=== PATIENT | female | born 1995 | race Caucasian/White ===

== ENCOUNTER 2025-02-14 09:04 | Outpatient (OUT) | payer OTHER, SELFPAY ==
--- OUTSIDE RECORDS SUMMARY | 2025-02-04 10:00 | XMS_ITS | Encounter Summary ---
Author Organization [facility] Address [address] [place] [address] Care Team Providers Care Insurance Risk Manager Name Role Phone Doug Rajput MD Primary Care Provider [phone] Encounter Details Date Type Department Care Team (Latest Contact Info) Description 02/04/2025 10:00 AM EDT Ancillary Procedure [facility] [address] [place] [address] Missed menses; Positive urine test ([facility]) Social History Tobacco Use Types Packs/Day Years Used Date Smoking Tobacco: Never Assessed Estimated Date of Delivery Comme nts Yes 08/08/2025 Based on Ultraso und, FHR- 153 Sex and Gender Information Value Date Recorded Sex Assigned at Not on file Legal Sex Female 6:53 PM EDT Gender Identity Not on file Sexual Orientation Not on file documented as of this encounter Plan of Treatment Upcoming Encounters Date Type Department Care Team (Late st Contact Info) Description 03/02/2025 11:10 AM EDT Routine [facility] [address] [place] [address] Chong Eid DO [address] [place] [place], [place] [id number] documented as of this encounter Procedures Procedure Name Priority Date/Time Associated Diagnosis Comments US OB TRANSVAGINAL Routine 02/04/2025 10 :29 AM EDT Missed menses Positive urine test ([facility]) documented in this encounter Results * US OB transvaginal (02/04/2025 10:29 AM EDT) Anatomical Region Laterality Modality Body Ultrasound 02/07/2025 12:3 6 PM EDT Impressions 02/07/2025 12:43 PM EDT Findings consistent with a live intrauterine gestation, current sonographic age of 13 weeks and 4 days resulting in an estimated date of delivery of August 08, 2025. TRANSCRIBED BY: ELECTRONICALLY SIGNED BY: Zach Christianson MD Narrative 02/07/2025 12:43 PM EDT FINDINGS: A single intrauterine gestational sac is present. No subchorionic hemorrhage. A single pole is present. Normal heart rate at 153 beats per minute. Current sonographic age is 13 weeks and 4 days based on the crown-rump length measurement of 7.5 cm. Based on this age, current estimated date of delivery is August 08, 2025. No pelvic fluid or adnexal mass present. Cervix is closed, 5.4 cm. Procedure Note Zach Christianson MD - 02/07/2025 FINDINGS: A single intrauterine gestational sac is present. No subchorionichemorrhage. A single pole is present. Normal heart rate at153 beats per minute. Current sonographic age is 13 weeks and 4 daysbased on the crown-rump length measurement of 7.5 cm. Based on this age,current estimated date of delivery is August 08, 2025. No pelvic fluid oradnexal mass present. Cervix is closed, 5.4 cm. IMPRESSION: Findings consistent with a live intrauterine gestation, currentsonographic age of 13 weeks and 4 days resulting in an estimated date ofdelivery of August 08, 2025. TRANSCRIBED BY: ELECTRONICALLY SIGNED BY: Zach Christianson MD us Chong Stanton DO IMG OB US PROCEDURES Final Resul t documented in this encounter Visit Diagnoses Diagnosis Missed menses Positive urine test ([facility]) documented in this encounter Care Teams Insurance Risk Manager Relationship Specialty Start Date End Date Doug Rajput MD [address] [place] [address] PCP - General Family Medicine 02/04/25 documented as of this encounter
--- OUTSIDE RECORDS SUMMARY | 2025-02-04 10:30 | XMS_ITS | Encounter Summary ---
Author Organization [facility] Address [address] [place] [address] Care Team Providers Care Hand Paint Mixer Name Role Phone Doug Rajput MD Primary Care Provider [phone] Reason for Visit * Reason Comments Routine Visit Encounter Details Date Type Department Care Team (Late st Contact Info) Description 02/04/2025 10:30 AM EDT Initial [facility] [address] [facility] [place] [id number] GA: 13w4d Social History Tobacco Use Types Packs/Day Years Used Date Smoking Tobacco: Never Assessed Estimated Date of Delivery Comme nts Yes 08/08/2025 Based on Ultraso und, FHR- 153 Sex and Gender Information Value Date Recorded Sex Assigned at Not on file Legal Sex Female 6:53 PM EDT Gender Identity Not on file Sexual Orientation Not on file documented as of this encounter Last Filed Vital Signs Vital Sign Reading Time Taken Comments Blood Pressure 120/70 02/04/2025 10:47 AM EDT Pulse - - Temperature - - Respiratory Rate - - Oxygen Saturation - - Inhaled Oxygen Concentration - - Weight 45.3 kg (99 lb 12.8 oz) 02/04/2025 10:47 AM EDT Height - - Body Mass Index - - documented in this encounter Progress Notes * Evie Streeter LPN - 02/04/2025 10:30 AM EDT Reason for Appointment: Patient ID: Alcon Kirby is a 29 y.o. female who presents for Routine Visit Patient presents today for a Nurse OB Intake appointment. Patient is 13w4d with a Estimated Date ofDelivery: 08/08/25 OB History Para Term AB Living 3 2 2 2 SAB IAB Ectopic Multiple Live Births 2 # Outcome Date GA Lbr Avtar/2nd Weight Sex Type Anes PTL Lv 3 Current 2 Term 10/20/16 7 lb 4 oz M Vag-Spont RAMBO 1 Term 09/30/15 6 lb 5 oz F Vag-Spont RAMBO Comments: 2 weeks early Current Medications: has a current medication list which includes the following prescription(s): ondansetron odt, magnesium oxide, and promethazine. Medical History: Active Ambulatory Problems Diagnosis Date Noted No Active Ambulatory Problems Resolved Ambulatory Problems Diagnosis Date Noted No Resolved Ambulatory Problems Past Medical History: Diagnosis Date H/O herpes simplex infection Family History Problem Relation Name Age of Onset Hypertension Mother Social History Tobacco Use Smoking status: Not on file Smokeless tobacco: Not on file Substance Use Topics Alcohol use: Not on file Drug use: Not on file Past Surgical History: Procedure Laterality Date ANKLE SURGERY Left No Known Allergies Vitals: There is no height or weight on file to calculate BMI. BP: 120/70 Patient's last menstrual period was 12/11/2024. Assessment/Plan Diagnoses and all orders for this visit: Missed menses - Type and screen; Future - ABO/Rh; Future - CBC and differential - Hemoglobin A1c - RPR - Rubella antibody, IgG - Hepatitis B surface antigen - Hepatitis C antibody - HIV-1 and HIV-2 antibodies - Urine culture - POCT , urine manually resulted - POCT urinalysis dipstick manually resulted , unspecified gestational age ([facility]) - Type and screen; Future - ABO/Rh; Future - CBC and differential - Hemoglobin A1c - RPR - Rubella antibody, IgG - Hepatitis B surface antigen - Hepatitis C antibody - HIV-1 and HIV-2 antibodies - Rapid drug screen, urine; Future Encounter for supervision of normal first in first trimester ([facility]) - Rapid drug screen, urine; Future Nausea - promethazine (Phenergan) 12.5 MG tablet; Take 1 tablet (12.5 mg) by mouth every 6 (six) hours if needed for nausea or vomiting for up to 30 doses Take 1 tablet by mouth every 6 hours as needed for nausea. Other migraine without status migrainosus, not intractable - magnesium oxide (Mag-Ox) 400 MG tablet; Take 1 tablet (400 mg) by mouth Daily Nurse Note: OB Intake: Patient presents today for first OB visit. Patients history has been reviewed in great detail including any potential risks. Patient signed consent forms and patient desires testing in both trimesters. Patient currently has no complaints and has been advised to drink 6-8 glasses of water a day, eatno raw or undercooked meat, and stay away from [facility]. Patient has also been advised to not change litter boxes and eat 6 small meals a day. Patient has been consulted regarding the do's and don'ts ofpregnancy. Patient was given labs and all questions and concerns were answered. Patient was given [place] to have completed with Initial lab work. Scripts for nausea and migraines sent at this time. Follow Up: Patient is to return in 4 weeks for routine OB appointment. Follow Up: Patient is to have labs drawn at directed and return to office for initial OB appointment with provider. Patient may call office as needed with any concerns or questions. Nurse Visit Completed by: Evie Streeter LPN documented in this encounter Plan of Treatment Upcoming Encounters Date Type Department Care Team (Late st Contact Info) Description 03/02/2025 11:10 AM EDT Routine [facility] [address] [facility] [place] [phone] Chong Eid DO [address] [place] [address] Scheduled Orders Name Type Priority Associated Diagnoses Orde r Schedule Type and screen Lab Routine Missed menses , unspecified gestational age ([facility]) Expected: 02/04/2025 (Approximate), Expires: 02/04/2026 ABO/Rh Lab Routine Missed menses , unspecified gestational age ([facility]) Expected: 02/04/2025 (Approximate), Expires: 02/04/2026 CBC and differential Lab Routine Missed menses , unspecified gestational age ([facility]) Ordered: 02/04/2025 Hemoglobin A1c Lab Routine Missed menses , unspecified gestational age ([facility]) Ordered: 02/04/2025 RPR Lab Routine Missed menses , unspecified gestational age ([facility]) Ordered: 02/04/2025 Rubella antibody, IgG Lab Routine Missed menses , unspecified gestational age ([facility]) Ordered: 02/04/2025 Hepatitis B surface antigen Lab Routine Missed menses , unspecified gestational age ([facility]) Ordered: 02/04/2025 Hepatitis C antibody Lab Routine Missed menses , unspecified gestational age ([facility]) Ordered: 02/04/2025 HIV-1 and HIV-2 antibodies Lab Routine Missed menses , unspecified gestational age ([facility]) Ordered: 02/04/2025 Urine culture Microbiology Routine Missed menses Ordered: 02/04/2025 Rapid drug screen, urine Lab Routine , unspecified gestational age ([facility]) Encounter for supervision of normal first in first trimester ([facility]) Expected: 02/04/2025 (Approximate), Expires: 02/04/2026 documented as of this encounter Procedures Procedure Name Priority Date/Time Associated Diagnosis Comments POCT , URINE Routine 02/04/2025 10:33 AM EDT Missed menses POCT URINALYSIS DIPSTICK Routine 02/04/2025 10:33 AM EDT Missed menses documented in this encounter Results * POCT urinalysis dipstick manually resulted (02/04/2025 10:33 AM EDT) Color, UA Colorless Clarity, UA Clear Glucose, UA Negative Negative - 2000(110) ++++ mg/dL Bilirubin, UA Negative Negative - 4(70) +++ mg/dL Ketones, UA Negative Negative - 160(16) ++++ mg/dL Spec Grav, UA 1.005 1 - 1.03 Blood, UA Negative Negative - 50 Travis/mcL pH, UA 6.0 5 - 9 Protein, UA Negative Negative - 2000(20) ++++ mg/dL Urobilinogen, UA 1.0 0.2 - 12 mg/dL Leukocytes, UA Negative Negative - 500+++ Lala/mcL Nitrite, UA Negative Negative - Positive Urine 02/04/2025 10:3 3 AM EDT us Chong Eid DO POINT OF CARE TEST ENTER/EDIT OR DERABLES Final Result * (ABNORMAL) POCT , urine manually resulted (02/04/2025 10:33 AM EDT) Preg Test, Ur Positive Negative Urine 02/04/2025 10:3 3 AM EDT Chong Eid DO POINT OF CARE TEST ENTER/EDIT OR DERABLES Final Result documented in this encounter Visit Diagnoses Diagnosis Missed menses , unspecified gestational age ([facility]) Encounter for supervision of normal first in first trimester ([facility]) Nausea Nausea alone Other migraine without status migrainosus, not intractable documented in this encounter Care Teams Hand Paint Mixer Relationship Specialty Start Date End Date Doug Rajput MD [address] [place] [address] PCP - General Family Medicine 02/04/25 documented as of this encounter
--- OUTSIDE RECORDS SUMMARY | 2025-02-14 09:10 | XMS_ITS | Encounter Summary ---
Author Organization [facility] Address [address] [place] [address] Care Team Providers Care Jointer Submarine Cable Name Role Phone Doug Rajput MD Primary Care Provider [phone] Encounter Details Date Type Department Care Team (Late Contact Info) Description 02/04/2025 Abstract [facility] [address] [place] [phone] Chong Eid DO [address] [place], [facility] Social History Tobacco Use Types Packs/Day Years [...] Encounters Date Type Department Care Team (Late Contact Info) Description 03/02/2025 11:10 AM EDT Routine [facility] [address] [place] [place] [phone] Chong Eid DO [address] [place], [place] [phone] documented as of this encounter Visit Diagnoses Not on filedocumented in this encounter Care Teams Jointer Submarine Cable Relationship Specialty Start Date End Date Doug Rajput MD [address] [facility] [place] [address] PCP - General Family Medicine 02/04/25 documented as of this encounter
--- OUTSIDE RECORDS SUMMARY | 2025-02-14 09:10 | XMS_ITS | Encounter Summary ---
Author Organization [facility] Address [address] [place] [address] Care Team Providers Care Living Supervisor Name Role Phone Doug Rajput MD Primary Care Provider [phone] Encounter Details Date Type Department Care Team (Late Contact Info) Description 02/04/2025 Abstract [facility] [address] [place] [phone] Chong Eid DO [address] [place], [facility] Social History Tobacco Use Types Packs/Day Years [...] 11:10 AM EDT Routine [facility] [address] [employer] [place] [phone] Chong Eid DO [address] [place], [place] [phone] documented as of this encounter Visit Diagnoses Not on filedocumented in this encounter Care Teams Living Supervisor Relationship Specialty Start Date End Date Doug Rajput MD [address] [facility] [place] [address] PCP - General Family Medicine 02/04/25 documented as of this encounter
--- OUTSIDE RECORDS SUMMARY | 2025-02-14 09:10 | XMS_ITS | Encounter Summary ---
Author Organization [facility] Address [address] [place] [address] Care Team Providers Care Agricultural Extension Agent Name Role Phone Doug Rajput MD Primary Care Provider [phone] Encounter Details Date Type Department Care Team (Late Contact Info) Description 02/04/2025 Abstract [facility] [address] [place] [phone] Chong Eid DO [address] [place], [facility]11 Social History Tobacco Use Types Packs/Day [...] 11:10 AM EDT Routine [facility] [address] [employer] [place] [phone] Chong Eid DO [address] [place], [place] [id number] documented as of this encounter Visit Diagnoses Not on filedocumented in this encounter Care Teams Agricultural Extension Agent Relationship Specialty Start Date End Date Doug Rajput MD [address] [place] [facility] [place] [address] PCP - General Family Medicine 02/04/25 documented as of this encounter
[2025-02-14 10:08] LABS: Hematocrit 37.6 % (36.0-48.0); Hemoglobin 13.3 g/dL (12.0-16.0); Immature Granulocytes Abs Auto 0.03 10^3/uL (0.00-0.03); Immature Granulocytes Pct Auto 0.3 % (0.0-0.5); Lymphocytes Absolute Auto 1.7 10^3/uL (1.2-3.8); Mean Corpuscular HGB Conc 35.4 g/dL (29.9-35.2); Mean Corpuscular Hemoglobin 31.5 pg (26.7-34.0); Mean Corpuscular Volume 89.1 fL (81.0-99.0); Platelet Count 297 10^3/uL (150-450); Red Blood Count 4.22 10^6/uL (4.20-5.40); White Blood Count 8.7 10^3/uL (4.0-11.0)
[2025-02-14 10:27] LABS: Cannabinoid Screen Urine POSITIVE (NEGATIVE); Methamphetamines Screen Urine NEGATIVE (NEGATIVE); Tricyclic Antidepressant Urine NEGATIVE (NEGATIVE)
[2025-02-15 07:07] LABS: Rubella Antibodies, IgG 5.74 index (Immune >0.99)
[2025-02-15 13:08] LABS: Rapid Plasma Reagin, Quant Non Reactive titer (NonRea<1:1)
[2025-02-17 17:09] LABS: Carboxy THC Conf, MS, UR 42 ng/mL (Cutoff=10)
== END 2025-02-14 09:05 | disposition home or self-care (01) ==
LOC: LAB 09:08
PROVIDERS: PCP Family Medicine; Visit Provider Obstetrics & Gynecology
DX: Z34.01 Encounter for supervision of normal first pregnancy, first trimester (principal); N92.6 Irregular menstruation, unspecified
CPT/HCPCS: 36415; 80307; 80349; 83036; 85025; 86592; 86762; 86803; 86850; 86900; 86901; 87086; 87340; 87389

== ENCOUNTER 2025-03-23 08:51 | Outpatient (OUT) | payer OTHER, SELFPAY ==
--- OUTSIDE RECORDS SUMMARY | 2025-03-23 08:55 | XMS_ITS | Clinical Summary ---
Author Organization [facility] Address [address] [place] [address] Care Team Providers Care Bad Cloth Checker Name Role Phone Doug Rajput MD Primary Care Provider [phone] Allergies No known active allergies Medications MedicationSigDispense QuantityRefillsLast FilledStart DateEnd DateStatus ondansetron ODT (Zofran-ODT) 4 MG disintegrating tablet Take 4 mg by mouth every 6 (six) hours if needed for vomiting or nausea 5Active promethazine (Phenergan) 12.5 MG tablet Indications:NauseaTake 1 tablet (12.5 mg) by mouth every 6 (six) hours if needed for nausea or vomiting for up to 30 doses Take 1 tablet by mouth every 6 hours as needed for nausea. 30 tablet 5Active magnesium oxide (Mag-Ox) 400 MG tablet Indications:Other migraine without status migrainosus, not intractableTake 1 tablet (400 mg) by mouth Daily 30 tablet 6051Expired Encounters DateTypeDepartmentCare VemkQvszcfakvcn21/15/2025 11:10 AM EDTRout[place] [address] Chong Eid DO Second trimester ([facility]); 17 weeks gestation of ([facility]); Screening, , for anatomic survey ([facility])5Bamboo [place] [phone] Chong Eid DO 5Clinisync Result Encounter [facility] External Department Unsolicited Robyn Beauchamp PA 02/04/2025 10:30 AM EDTInitial [facility] [address] [facility] [place] [address] [place]: 59o3x4502/04/2025 10:00 AM EDTAncillary Procedure [facility] [address] [facility] [place] [address] Missed menses; Positive urine test ([facility])02/04/2025bstract [facility] [place] [facility] [address] [place] [address] Chong Eid, 02/04/2025bstract [facility] [address] [address] Chong Eid, 02/04/2025bstract [facility] [address] [place] [address] Chong Eid, from Last 3 Months Family History Medical HistoryRelationNameCommentsHypertensionMotherRelationNameStatusComments Mother Social History Tobacco UseTypesPacks/DayYears UsedDateSmoking Tobacco: Never Assessed Estimated Date of RsuvsuzlBkhlqasbXkx84/23/2026ased on Ultrasound, FHR- 153Sex and Gender InformationValueDate RecordedSex Assigned at BirthNot on fileLegal OtlXtirsb69/15/2023 6:53 PM EDTGender IdentityNot on fileSexual OrientationNot on file Last Filed Vital Signs Vital SignReadingTime TakenCommentsBlood Lhjotdwu360/6203/02/2025 11:38 AM EDT Pulse--Temperature--Respiratory Rate--Oxygen Saturation--Inhaled Oxygen Concentration--Wuuplk77.5 kg (107 lb)03/02/2025 11:38 AM EDTHeight--Body Mass Index-- Plan of Treatment DateTypeDepartmentCare Team (Latest Contact Info)Czowsfrtolv98/12/2025 1:30 PM ESTAncillary Procedure [facility] [place] [address] 03/30/2025 2:30 PM ESTRoutine [facility] [address] [place] [address] Robyn Beauchamp PA [address] [facility] [place] [address] Procedures Procedure NamePriorityDate/TimeAssociated DiagnosisCommentsPOCT URINALYSIS QSLRIHNWHtncuai12/15/2025 11:44 AM EDT 17 weeks gestation of ([facility]) HBSAG RFZUOMSzhgfmj38/29/2025 9:30 AM EDT RAPID PLASMA REAGIN, BPCCSYsbgarj86/29/2025 9:30 AM EDT HCV ANTIBODY RFX TO QUANT OPSMfctssx96/29/2025 9:30 AM EDT ALL RUBELLA IGG WRScasaji33/29/2025 9:30 AM EDT HIV AB/P24 AG WITH CKVVDLXipiuvb93/29/2025 9:30 AM EDT ALL TYPE AND ONCKZYKxkuefi74/29/2025 9:30 AM EDT MLR HEMOGLOBIN D4FWimlxsi34/29/2025 9:30 AM EDT ALL CBC WITH AUTO XMYLNfiiyja21/29/2025 9:30 AM EDT BOX AAOCQderxes66/29/2025 9:30 AM EDT CANNABINOID CONF, MS, ROSddhpgb37/29/2025 9:17 AM EDT TBH DRUG SCREEN RAPID (URINE)Qpmheoh8102/14/2025 9:17 AM EDT POCT URINALYSIS UTRVJPGPZptrfju05/19/2025 10:33 AM EDT Missed menses POCT , HKAKSZdpxwev05/19/2025 10:33 AM EDT Missed menses US OB RCJPHUAJFEBEVraodhf55/19/2025 10:29 AM EDT Missed menses Positive urine test ([facility]) from Last 3 Months Results * (ABNORMAL) POCT urinalysis dipstick manually resulted (03/02/2025 11:44 AM EDT) Only the most recent of2 resultswithin the time period is included. ComponentValueRef RangeTest MethodAnalysis TimePerformed AtPathologist Signature Color, UAYellowClarity, UAClearGlucose, UANegativeNegative - 2000(110) ++++ mg/dLBilirubin, UANegativeNegative - 4(70) +++ mg/dLKetones, UANegativeNegative - 160(16) ++++ mg/dLSpec Grav, UA1.0151 - 1.03Blood, UANegativeNegative - 50 Travis/mcLpH, UA6.55 - 9Protein, UANegativeNegative - 2000(20) ++++ mg/dL Urobilinogen, UA1.00.2 - 12 mg/dLLeukocytes, UA2+Negative - 500+++ Lala/mcL Nitrite, UANegativeNegative - PositiveSpecimen (Source)Anatomical Location / LateralityCollection Method / VolumeCollection TimeReceived FmpyMhivl48/15/2025 11:44 AM EDT Narrative Authorizing ProviderResult TypeResult StatusCorey Stanton DOPOINT OF CARE TEST ENTER/EDIT ORDERABLESFinal Result * BOX TEST (02/14/2025 9:30 AM EDT)ComponentValueRef RangeTest MethodAnalysis TimePerformed AtPathologist SignatureBOX TEST SENT ZEINYAFLHKIV8LVBNCOVERZS1 02/14/25TBHSpecimen (Source)Anatomical Location / LateralityCollection Method / VolumeCollection TimeReceived Time02/14/2025 9:30 AM EDT02/14/2025 9:37 AM EDT Narrative [facility] - 02/14/2025 10:13 AM EDT Authorizing ProviderResult TypeResult StatusAmy Nito PALAB BLOOD ORDERABLES Final ResultPerforming OrganizationAddressCity/State/ZIP CodePhone Number [facility] * HBSAG SCREEN (02/14/2025 9:30 AM EDT)ComponentValueRef RangeTest Method Analysis TimePerformed AtPathologist SignatureHBSAG SCREENNegativeNegativeTBH Comment: Performed at: ?? - [address] ??[id number] Final Application Reviewer: Linus Pollard PhD, Phone: ??[phone] Specimen (Source)Anatomical Location / LateralityCollection Method / Volume Collection TimeReceived Time02/14/2025 9:30 AM EDT02/14/2025 9:37 AM EDT Narrative [facility] - 02/15/2025 1:08 PM EDT Authorizing ProviderResult TypeResult StatusCoreshravan PATHAKAB BLOOD ORDERABLES Final ResultPerforming OrganizationAddressCity/State/ZIP CodePhone Number [facility] * RAPID PLASMA REAGIN, QUANT (02/14/2025 9:30 AM EDT)ComponentValueRef RangeTest MethodAnalysis TimePerformed AtPathologist SignatureRAPID PLASMA REAGIN, QUANT Non ReactiveNonRea<1:1 titerTBHComment: Please Note: This test does not meet current guidelines for screening and diagnosis of syphilis. This test is intended for following treatment response in patients being treated for syphilis infection. To screen for syphilis infection, a reflex cascade that includes both RPR and a treponema-specific assay should be utilized, such as Treponema pallidum (Syphilis) Screening Titus (363233) or Rapid Plasma Reagin (RPR) Test With Reflex to Quantitative RPR and Confirmatory Treponema pallidum Antibodies (034789). Performed at: ??[facility] [employer] ??[id number] Final Application Reviewer: Linus Pollard PhD, Phone: ??[phone] Specimen (Source)Anatomical Location / LateralityCollection Method / Volume Collection TimeReceived Time02/14/2025 9:30 AM EDT02/14/2025 9:37 AM EDT [facility]ative [facility] 02/15/2025 1:08 PM EDT Authorizing ProviderResult TypeResult StatusCorey Stanton DOLAB BLOOD ORDERABLES Final ResultPerforming OrganizationAddBrooke Glen Behavioral Hospitalty/State/ZIP CodePhone Number [facility] * HIV AB/P24 AG WITH REFLEX (02/14/2025 9:30 AM EDT)ComponentValueRef RangeTest MethodAnalysis TimePerformed AtPathologist SignatureHIV AB/P24 AG SCREENNon ReactiveNon ReactiveTBHComment: HIV-1/HIV-2 antibodies and HIV-1 p24 antigen were NOT detected. There is no laboratory evidence of HIV infection. HIV Negative Performed at: ??[facility] [employer] ??[id number] Final Application Reviewer: Linus Pollard PhD, Phone: ??[phone] Specimen (Source)Anatomical Location / LateralityCollection Method / Volume Collection TimeReceived Time02/14/2025 9:30 AM EDT02/14/2025 9:37 AM EDT Narrative [facility] - 02/15/2025 5:08 AM EDT Authorizing ProviderResult TypeResult StatusCorey Stanton DOLAB BLOOD ORDERABLES Final ResultPerforming OrganizationAddressCity/State/ZIP CodePhone Number [facility] * HCV ANTIBODY RFX TO QUANT PCR (02/14/2025 9:30 AM EDT)ComponentValueRef Range Test MethodAnalysis TimePerformed AtPathologist SignatureHCV ABNon ReactiveNon ReactiveTBHINTERPRETATION:Comment.TBHComment: Not infected with HCV unless early or acute infection is suspected (which may be delayed in an immunocompromised individual), or other evidence exists to indicate HCV infection. Performed at: ??[facility] [employer] ??[id number] Final Application Reviewer: Linus Pollard PhD, Phone: ??[phone] Specimen (Source)Anatomical Location / LateralityCollection Method / Volume Collection TimeReceived Time02/14/2025 9:30 AM EDT02/14/2025 9:37 AM EDT Narrative [facility] - 02/15/2025 7:07 AM EDT Authorizing ProviderResult TypeResult StatusCorey Stanton DOLAB BLOOD ORDERABLES Final ResultPerforming OrganizationAddBrooke Glen Behavioral Hospitalty/State/ZIP CodePhone Number [facility] * MLR HEMOGLOBIN A1C (02/14/2025 9:30 AM EDT)ComponentValueRef RangeTest Method Analysis TimePerformed AtPathologist SignatureGLYCOHEMOGLOBIN A1C5.14.5 - 6.2 %TBHComment: ADA RECOMMENDED LIMIT 4.0 - 6.0 ADA THERAPEUTIC TARGET < 7.0 ACTION SUGGESTED > 7.0 ESTIMATED AVERAGE JOXNWGH161ny/dLTBHSpecimen (Source)Anatomical Location / LateralityCollection Method / VolumeCollection TimeReceived Time02/14/2025 9:30 AM EDT02/14/2025 9:37 AM EDT Narrative [facility] - 02/14/2025 10:36 AM EDT Authorizing ProviderResult TypeResult StatusCorey Stanton DOCLINISYNCFinal Result Performing OrganizationAddBrooke Glen Behavioral Hospitalty/State/ZIP CodePhone Number [facility] * ALL TYPE AND SCREEN (02/14/2025 9:30 AM EDT)ComponentValueRef RangeTest Method Analysis TimePerformed AtPathologist SignatureBLOOD TYPEO PositiveTBHANTIBODY SCREENNEGATIVETBHSpecimen (Source)Anatomical Location / LateralityCollection Method / VolumeCollection TimeReceived Time02/14/2025 9:30 AM EDT02/14/2025 9:37 AM EDT Narrative [facility] - 02/14/2025 11:51 AM EDT [facility] , ?? Authorizing ProviderResult TypeResult StatusCorey Stanton DOCLINISYNCFinal Result Performing OrganizationAddBrooke Glen Behavioral Hospitalty/State/ZIP CodePhone Number [facility] * ALL RUBELLA IGG AB (02/14/2025 9:30 AM EDT)ComponentValueRef RangeTest Method Analysis TimePerformed AtPathologist SignatureRUBELLA ANTIBODIES, IGG5.74 Immune >0.99 indexTBHComment: Non-immune <0.90 ?Equivocal ??0.90 - 0.99 Immune >0.99 Performed at: ??[facility] [address] ??[id number] Final Application Reviewer: Linus Pollard PhD, Phone: ??[phone] Specimen (Source)Anatomical Location / LateralityCollection Method / Volume Collection TimeReceived Time02/14/2025 9:30 AM EDT02/14/2025 9:37 AM EDT Narrative [facility] - 02/15/2025 7:07 AM EDT Authorizing ProviderResult TypeResult StatusCorey Stanton DOCLINISYNCFinal Result Performing OrganizationAddressCity/State/ZIP CodePhone Number [facility] * (ABNORMAL) ALL CBC WITH AUTO DIFF (02/14/2025 9:30 AM EDT)ComponentValueRef RangeTest MethodAnalysis TimePerformed AtPathologist SignatureTBH WBC8.74.0 - 11.0 10 3/uLTBHTBH RBC4.224.20 - 5.40 10 6/uLTBHTBH HGB13.312.0 - 16.0 g/dLTBH TBH HCT37.636.0 - 48.0 %TBHTBH MCV89.181.0 - 99.0 fLTBHTBH MCH31.526.7 - 34.0 pgTBHTBH MCHC35.4(H)29.9 - 35.2 g/dLTBHTBH RDW12.111.0 - 15.0 %TBHTBH TJE777 150 - 450 10 3/uLTBHTBH MPV9.2(L)9.5 - 13.5 fLTBHNEUTROPHILS PERCENT AUTO73.5 43.0 - 75.0 %TBHLYMPHOCYTES PERCENT AUTO19.1(L)20.5 - 60.0 %TBHMONOCYTES PERCENT AUTO6.61.7 - 12.0 %TBHTBH EO %0.2(L)0.9 - 7.0 %TBHBASOPHILS PERCENT AUTO0.30.2 - 2.0 %TBHIMMATURE GRANULOCYTES PCT AUTO0.30.0 - 0.5 %TBH NEUTROPHILS ABSOLUTE AUTO6.41.4 - 6.5 10 3/uLTBHLYMPHOCYTES ABSOLUTE AUTO1.7 1.2 - 3.8 10 3/uLTBHMONOCYTES ABSOLUTE AUTO0.60.3 - 0.8 10 3/uLTBHTBH EO #0.0 0.0 - 0.7 10 3/uLTBHBASOPHILS ABSOLUTE AUTO0.00.0 - 0.1 10 3/uLTBHIMMATURE GRANULOCYTES ABS AUTO0.030.00 - 0.03 10 3/uLTBHSpecimen (Source)Anatomical Location / LateralityCollection Method / VolumeCollection TimeReceived Time 02/14/2025 9:30 AM EDT02/14/2025 9:37 AM EDT Narrative [facility] - 02/14/2025 10:17 AM EDT Authorizing ProviderResult TypeResult StatusCorey Stanton DOCLINISYNCFinal Result Performing OrganizationAddressCity/State/ZIP CodePhone Number [facility] * (ABNORMAL) [facility] DRUG SCREEN RAPID (URINE) (02/14/2025 9:17 AM EDT)Component ValueRef RangeTest MethodAnalysis TimePerformed AtPathologist Signature CANNABINOID SCREEN URINEPOSITIVE(A)NEGATIVETBHPHENCYCLIDINE SCREEN URINE NEGATIVENEGATIVETBHCOCAINE SCREEN URINENEGATIVENEGATIVETBHMETHAMPHETAMINES SCREEN URINENEGATIVENEGATIVETBHOPIATE SCREEN URINENEGATIVENEGATIVETBH AMPHETAMINE SCREEN URINENEGATIVENEGATIVETBHBENZODIAZEPINES SCREEN URINE NEGATIVENEGATIVETBHTRICYCLIC ANTIDEPRESSANT URINENEGATIVENEGATIVETBHMETHADONE SCREEN URINENEGATIVENEGATIVETBHBARBITURATES SCREEN URINENEGATIVENEGATIVETBH OXYCODONE SCREEN URINENEGATIVENEGATIVETBHBUPRENORPHINE SCREEN URINENEGATIVE NEGATIVETBHComment: DRUG CLASS TEST SYSTEM CUT-OFF CONCENTRATIONS ARE FOLLOWS: AMP (Amphetamine): 500 ng/mL BAR (Barbiturates): 200 ng/mL BZO (Benzodiazepines): 150 ng/mL BUP (Buprenorphine): 10 ng/mL BHARATHI (Cocaine): 150 ng/mL mAMP (Methamphetamine): 500 ng/mL MTD (Methadone): 200 ng/mL OPI (Opiates): 100 ng/mL OXY (Oxycodone): 100 ng/mL PCP (Phencyclidine): 25 ng/mL THC (Cannabinoids): 50 ng/mL TCA (Trycyclic Antidepressants): 300 ng/mL Specimen (Source)Anatomical Location / LateralityCollection Method / Volume Collection TimeReceived Time02/14/2025 9:17 AM EDT02/14/2025 9:38 AM EDT Narrative [facility] - 02/14/2025 10:27 AM EDT Authorizing ProviderResult TypeResult StatusCorey Stanton DOCLINISYNCFinal Result Performing OrganizationAddressCity/State/ZIP CodePhone Number [facility] * (ABNORMAL) CANNABINOID CONF, MS, UR (02/14/2025 9:17 AM EDT)ComponentValueRef RangeTest MethodAnalysis TimePerformed AtPathologist SignatureCANNABINOID Positive(A).TBHCARBOXY THC CONF, MS, XU71Gebryh=74 ng/mLTBHComment: Performed at: ??[facility] - [facility] [address] ??[id number] Final Application Reviewer: Leodan Martínez PhD, Phone: ??[phone] Specimen (Source)Anatomical Location / LateralityCollection Method / Volume Collection TimeReceived Time02/14/2025 9:17 AM EDT02/14/2025 10:29 AM EDT Narrative [facility] - 02/17/2025 5:09 PM EDT Authorizing ProviderResult TypeResult StatusCorey Stanton DOLAB BLOOD ORDERABLES Final ResultPerforming OrganizationAddressCity/State/ZIP CodePhone Number [facility] * (ABNORMAL) POCT , urine manually resulted (02/04/2025 10:33 AM EDT) ComponentValueRef RangeTest MethodAnalysis TimePerformed AtPathologist SignaturePreg Test, UrPositiveNegativeSpecimen (Source)Anatomical Location / LateralityCollection Method / VolumeCollection TimeReceived TimeUrine 02/04/2025 10:33 AM EDT Narrative Authorizing ProviderResult TypeResult StatusCorey Stanton DOPOINT OF CARE TEST ENTER/EDIT ORDERABLESFinal Result * US OB transvaginal (02/04/2025 10:29 AM EDT)Anatomical RegionLaterality ModalityBodyUltrasoundSpecimen (Source)Anatomical Location / Laterality Collection Method / VolumeCollection TimeReceived Time02/07/2025 12:36 PM EDT Impressions 02/07/2025 12:43 PM EDT Findings consistent with a live intrauterine gestation, current sonographic age of 13 weeks and 4 days resulting in an estimated date of delivery of August 08, 2025. TRANSCRIBED BY: ? ELECTRONICALLY SIGNED BY: Zach Christianson MD Narrative 02/07/2025 12:43 PM EDT FINDINGS: A single intrauterine gestational sac is present. ??No subchorionic hemorrhage. ??A single pole is present. Normal heart rate at 153 beats per minute. ??Current sonographic age is 13 weeks and 4 days based on the crown-rump length measurement of 7.5 cm. ??Based on this age, current estimated date of delivery is August 08, 2025. ??No pelvic fluid or adnexal mass present. ??Cervix is closed, 5.4 cm. Procedure Note Zach [...] BY: ELECTRONICALLY SIGNED BY: Zach Christianson MD Authorizing ProviderResult TypeResult StatusCorey Stanton DOI OB US PROCEDURES Final Result from Last 3 Months Insurance Care Teams Team MemberRelationshipSpecialtyStart DateEnd Date Doug Rajput MD [address] [place] [id number] [facility] - [facility]/25
--- OUTSIDE RECORDS SUMMARY | 2025-03-23 08:55 | XMS_ITS | Patient Health Record ---
Author Organization The [facility] Ma in [place] Address [address] [place] [address] Care Team Providers Care Unionmelt Operator Name Role Phone Dawson Rajput Primary Care Provider [phone] Allergies No Known Allergies Results Component Value Reference Range Notes Rapid Plasma Reagin, Quant Reviewed date:02/15/2025 04:57:55 PM Interpretation: Performing Lab: Notes/Report: [facility] , Rapid Plasma Reagin, Quant Non Reactive NonRea<1:1 tit er Treponema pallidum (Syphilis) Screening [place] (196813) or infection, a reflex cascade that includes both RPR and a screening and diagnosis of syphilis. This test is treated for syphilis infection. To screen for syphilis (398840). Label Operator: Linus Pollard PhD, Phone: [phone] [address] [place], [place] [id number] Performed at: [facility] intended for following treatment response in patients being RPR and Confirmatory Treponema pallidum Antibodies Rapid Plasma Reagin (RPR) Test With Reflex to Quantitative treponema-specific assay should be utilized, such as Please Note: This test does not meet current guidelines for Performing Lab: see note [facility] LBHBsAg Screen Reviewed date:02/15/2025 04:57:55 PM Interpretation: Performing Lab: Notes/Report: [facility] ,HBsAg ScreenNegativeNegative Performed at: [address] [id number] Label Operator: Linus Pollard PhD, Phone: [phone] Performing Lab:[facility] note[facility] LBUrine Culture, Routine Reviewed date:02/16/2025 05:54:47 PM Interpretation: Performing Lab: Notes/Report: [facility] ,Urine Culture, RoutineSee Below For Report Urine Culture, Routine Urine Culture, RoutineCulture shows less than 10,000 colony forming units of bacteria per Urine Culture, Routine Urine Culture, Routinemilliliter of urine. This colony count is not generally considered Urine Culture, Routine Urine Culture, Routineto be clinically significant. Urine Culture, Routine Urine Culture, RoutinePerformed at: [facility] Urine Culture, Routine Urine Culture, [address] [place], [place] [id number] Urine Culture, Routine Urine Culture, RoutineLab Director: Linus Pollard PhD, Phone: [phone] Urine Culture, Routine Performing Lab:see note SEE REPORT - Metal Fabricator Apprentice Id information not found for OBX-specific technical producer legend - [facility] LB Cannabinoid Conf, MS, UR Reviewed date:02/17/2025 05:33:23 PM Interpretation: Performing Lab: Notes/Report: [facility] ,CannabinoidPositive.Carboxy THC Conf, MS, CY11Sqcllz=49 ng/mL Performed at: [facility] [address] [place], [place] [id number] Label Operator: Leodan Martínez PhD, Phone: [phone] Performing Lab:see galloHar[facility] LBType and Screen Reviewed date:02/14/2025 02:21:07 PM Interpretation: Performing Lab: Notes/Report: [facility] ,Blood TypeO PositiveAntibody ScreenNEGATIVEGLYCOHEMOGLOBIN A1C Reviewed date:02/14/2025 02:21:07 PM Interpretation: Performing Lab: Notes/Report: [facility] ,Glycohemoglobin A1C5.14.5-6.2 % ADA THERAPEUTIC TARGET < 7.0 ADA RECOMMENDED LIMIT 4.0 - 6.0 > 7.0 ACTION SUGGESTED Estimated Average Pmekxnn467Zawyadjdfw Lab:see noteML - [facility] LB DRUG SCREEN RAPID (URINE) Reviewed date:02/14/2025 02:21:07 PM Interpretation: Performing Lab: Notes/Report: [facility] ,Cannabinoid Screen UrinePOSITIVENEGATIVEPhencyclidine Screen UrineNEGATIVE NEGATIVECocaine Screen UrineNEGATIVENEGATIVEMethamphetamines Screen Urine NEGATIVENEGATIVEOpiate Screen UrineNEGATIVENEGATIVEAmphetamine Screen Urine NEGATIVENEGATIVEBenzodiazepines Screen UrineNEGATIVENEGATIVETricyclic Antidepressant UrineNEGATIVENEGATIVEMethadone Screen UrineNEGATIVENEGATIVE Barbiturates Screen UrineNEGATIVENEGATIVEOxycodone Screen UrineNEGATIVENEGATIVE Buprenorphine Screen UrineNEGATIVENEGATIVE OXY (Oxycodone): 100 ng/mL THC (Cannabinoids): 50 ng/mL BAR (Barbiturates): 200 ng/mL DRUG CLASS TEST SYSTEM CUT-OFF CONCENTRATIONS ARE AMP (Amphetamine): 500 ng/mL BZO (Benzodiazepines): 150 ng/mL mAMP (Methamphetamine): 500 ng/mL BHARATHI (Cocaine): 150 ng/mL OPI (Opiates): 100 ng/mL PCP (Phencyclidine): 25 ng/mL TCA (Trycyclic Antidepressants): 300 ng/mL BUP (Buprenorphine): 10 ng/mL MTD (Methadone): 200 ng/mL FOLLOWS: Performing Lab:see noteML - [facility] LBCBC AUTO DIFF Reviewed date:02/14/2025 02:21:07 PM Interpretation: Performing Lab: Notes/Report: [facility] ,White Blood Count8.74.0-11.0 10 3/uLRed Blood Count4.224.20-5.40 10 6/uL Vfrdteljqm62.312.0-16.0 g/hHBjqzbgrvvn28.636.0-48.0 %Mean Corpuscular Iuavbn84.1 81.0-99.0 fLMean Corpuscular Rloqgxkeyb86.526.7-34.0 pgMean Corpuscular HGB Conc 35.429.9-35.2 g/dLRed Cell Distribution Width12.111.0-15.0 %Platelet Xxhez762 150-450 10 3/uLMean Platelet Volume9.29.5-13.5 fLNeutrophils Percent Auto73.5 43.0-75.0 %Lymphocytes Percent Auto19.120.5-60.0 %Monocytes Percent Auto6.61.7- 12.0 %Eosinophils Percent Auto0.20.9-7.0 %Basophils Percent Auto0.30.2-2.0 % Immature Granulocytes Pct Auto0.30.0-0.5 %Neutrophils Absolute Auto6.41.4-6.5 10 3/uLLymphocytes Absolute Auto1.71.2-3.8 10 3/uLMonocytes Absolute Auto0.60.3-0.8 10 3/uLEosinophils Absolute Auto0.00.0-0.7 10 3/uLBasophils Absolute Auto0.00.0- 0.1 10 3/uLImmature Granulocytes Abs Auto0.030.00-0.03 10 3/uLPerforming Lab:see noteML - [facility] LBUnity Box Reviewed date:02/14/2025 02:21:07 PM Interpretation: Performing Lab: Notes/Report: [facility] ,BOX Test Sent OutYESBOX Test Reference LabUNITYBOX Test Date Sent02/14/25 Performing Lab:see note - [facility] LBHCV Antibody RFX to Quant PCR Reviewed date:02/15/2025 08:08:58 AM Interpretation: Performing Lab: Notes/Report: [facility] ,HCV AbNon ReactiveNon ReactiveInterpretation:Comment. suspected (which may be delayed in an immunocompromised infection. Performed at: [facility] individual), or other evidence exists to indicate HCV Not infected with HCV unless early or acute infection is Label Operator: Linus Pollard PhD, Phone: [phone] [address] [place] [phone] Performing Lab:[facility] LBHIV Ab/p24 Ag with Reflex Reviewed date:02/15/2025 08:08:58 AM Interpretation: Performing Lab: Notes/Report: [facility] ,HIV Ab/p24 Ag ScreenNon ReactiveNon Reactive [address] [place] [phone] detected. There is no laboratory evidence of HIV infection. HIV-1/HIV-2 antibodies and HIV-1 p24 antigen were NOT Performed at: [facility] HIV Negative Label Operator: Linus Pollard PhD, Phone: [phone] Performing Lab:[facility] LBRUBELLA AB IGG Reviewed date:02/15/2025 08:08:58 AM Interpretation: Performing Lab: Notes/Report: [facility] ,Rubella Antibodies, IgG5.74Immune >0.99 index Equivocal 0.90 - 0.99 Non-immune <0.90 [address] [place], [place] [phone] Performed at: - [facility] [place] Immune >0.99 Label Operator: Linus Pollard PhD, Phone: [phone] Performing Lab:see note - [facility] LB Reason For Referral No Information Medications Medication SIG (Take, Route, Frequency, Duration) Notes Start Date End Date Status Ondansetron 4 MG 1 tablet on the tong ue and allow to dissolve Orally Q 4 h; Duration: 30 days 5Active Social History Tobacco Use: Social History Observation Description Date Details (start date - stop date) Former Smoker 12/17/2012 - 12/15/2024 Tobacco Control (Standard) Question Answer Notes Tobacco use: Former smoker When did you start smoking?12/17/2012When did you stop smoking?12/15/2024How long has it been since you last smoked?Less than 1 monthAUDIT-C (Standard) Question Answer Notes Did you have a drink containing alcohol in the p ast year? No Ierpfv0GgusedhdufqypsKhuydmzf Vital Signs Blood pressure diastolic 58 mm Hg 12/27/2024 Kmnbrw38 in12/27/2024lood pressure twzmsptu81 mm Hg12/27/20244631Gcdpat84.4 lbs 12/27/2024BMI18.24 kg/m212/27/2024 Encounters Encounter Location Date Provider Diagnosis [address] [address] 12/27/2024 Dawson Rajput Morning sickness O21 .0 Assessments Encounter Date Diagnosis (ICD Code) Assessment Notes Treatment Notes Treatment Clinical Notes Section Notes 12/27/2024 Morning sickness (ICD-10 - O21.0 ) Plan Of Treatment No Information Medical (General) History Medical History History ICD Code Staph infection Left ankle Hospitalization History Reason Date(Month/Year) staph infection as a child
== END 2025-03-23 08:52 | disposition home or self-care (01) ==
LOC: LAB 08:52
PROVIDERS: PCP Family Medicine; Visit Provider Obstetrics & Gynecology
DX: Z34.92 Encounter for supervision of normal pregnancy, unspecified, second trimester (principal)
CPT/HCPCS: 36415; 82105

== ENCOUNTER 2025-05-02 12:47 | Outpatient (REF) | payer OTHER, SELFPAY ==
[2025-05-04 10:08] LABS: Age Gdln ACOG Testing Note (.); IGP, Aptima HPV, rfx 16/18,45 Note (.)
== END 2025-05-02 12:48 | disposition home or self-care (01) ==
LOC: LAB 12:47
PROVIDERS: PCP Family Medicine; Visit Provider Obstetrics & Gynecology
DX: Z01.419 Encounter for gynecological examination (general) (routine) without abnormal findings (principal)
CPT/HCPCS: 88175

== ENCOUNTER 2025-05-04 10:44 | Outpatient (OUT) | payer OTHER, SELFPAY ==
--- OUTSIDE RECORDS SUMMARY | 2025-05-02 10:10 | XMS_ITS | Encounter Summary ---
Author Organization [facility] Address [address] [place] [address] Care Team Providers Care Popcorn Candy Maker Name Role Phone Doug Rajput MD Primary Care Provider [phone] Reason for Visit * ReasonCommentsRoutine Visit Encounter Details DateTypeDepartmentCare Team (Latest Contact Info)Xxppbehhyol86/15/2025 10:10 AM ESTRoutine [facility] [address] [place] [address] Chong Eid DO [address] [place] [address] Second trimester ([facility]); 26 weeks gestation of ([facility]); Diabetes mellitus screening; Well woman exam with routine gynecological exam; STD exposure Social History Tobacco UseTypesPacks/DayYears UsedDateSmoking Tobacco: Never Assessed Estimated Date of JjanwokzNgtzolekZzc35/23/2026ased on Ultrasound, FHR- 153Sex and Gender InformationValueDate RecordedSex Assigned at BirthNot on fileLegal DttWfasio84/15/2023 6:53 PM EDTGender IdentityNot on fileSexual OrientationNot on filedocumented as of this encounter Last Filed Vital Signs Vital SignReadingTime TakenCommentsBlood Ffzajisb647/80107/03/2024 10:32 AM EST Pulse--Temperature--Respiratory Rate--Oxygen Saturation--Inhaled Oxygen Concentration--Dcbvdl30.5 kg (126 lb 12 oz)05/02/2025 10:32 AM [...] nursing note reviewed. Exam conducted with a metallurgy laboratory technician present. Vitals: There is no height or weight on file to calculate BMI. BP: 118/80 Patient's last menstrual period was 12/11/2024. Assessment/Plan ICD-10-CM 1. Second trimester ([facility]) Z34.92 2. 26 weeks gestation of ([facility]) Z3A.26 POCT urinalysis dipstick manually resulted [...] Plan of Treatment DateTypeDepartmentCare Team (Latest Contact Info)Magnbloxpau69/29/2025 2:00 PM ESTRoutine [facility] [address] [place] [phone] Robyn Beauchamp PA [address] [address] NameTypePriorityAssociated DiagnosesOrder ScheduleCBCLabRoutine Diabetes mellitus screening Expected: [...] this encounter Procedures Procedure NamePriorityDate/TimeAssociated DiagnosisCommentsPOCT URINALYSIS GKMZLPPNDdnjkhd50/15/2025 10:40 AM EST 26 weeks gestation of ([facility]) documented in this encounter Results * [...] this encounter Visit Diagnoses Diagnosis Second trimester ([facility]) state, incidental 26 weeks gestation of ([facility]) Diabetes mellitus screening Screening for diabetes mellitus Well woman exam with routine gynecological exam Routine gynecological examination STD exposure documented in this encounter Care Teams Team MemberRelationshipSpecialtyStart DateEnd Date Doug Rajput MD [address] [place] [phone] PCP - GeneralFamily Medicine02/04/25documented as of this encounter
--- OUTSIDE RECORDS SUMMARY | 2025-05-04 10:57 | XMS_ITS | Clinical Summary ---
Author Organization [facility] Address [address] [place] [address] Care Team Providers Care Financial Sales Advisor Name Role Phone Doug Rajput MD Primary [...] as needed for nausea. 30 tablet 5Active Encounters DateTypeDepartmentCare NsogSpoxoncpicr33/15/2025 10:10 AM ESTRoutine [facility] [address] [employer] [place] [phone] Chong Eid, DO Second trimester ([facility]); 26 weeks gestation of ([facility]); Diabetes mellitus screening; Well woman exam with routine gynecological exam; STD diuiewlr63/15/2025linisync Result Encounter [facility] External Department Unsolicited Chong Eid, DO 05/02/2025External Result Encounter [facility] External Department Unsolicited Chong Eid, DO 05/02/2025amboo flowsheet [facility] [address] [employer] [place] [phone] Chong Eid, DO 03/30/2025 2:30 PM ESTRoutine [facility] [address] [facility] [place] [address] Robyn Beauchamp PA Second trimester ([facility]); 21 weeks gestation of ([facility])03/30/2025 1:30 PM ESTAncillary Procedure [facility] [address] [facility] [place] [address] Screening, , for anatomic survey ([facility])5Clinisync Result Encounter [facility] External Department Unsolicited Chong Eid, 03/02/2025 11:10 AM EDTRoutine [facility] [address] [facility] [place] [phone] Chong Eid, Second trimester ([facility]); 17 weeks gestation of ([facility]); Screening, , for anatomic survey ([facility])5Bamboo flowsheet [facility] [address] [facility] [place] [phone] Chong Eid, 5Clinisync Result Encounter [facility] External Department Unsolicited Robyn Beauchamp PA 02/04/2025 10:30 AM EDTInitial [facility] [address] [place] [phone] GA: 47w7g3102/04/2025 10:00 AM EDTAncillary Procedure [facility] [address] [facility] [place] [phone] Missed menses; Positive urine test ([facility])5Abstract [facility] [address] [place] [phone] Chong Eid, 5Abstract [facility] [address] [facility] [place] [address] Chong Eid DO 02/04/2025bstract [facility] [address] [facility] [place] [phone] Chong Eid DO from Last 3 Months Family History Medical HistoryRelationNameCommentsHypertensionMotherRelationNameStatusComments Mother Social History Tobacco UseTypesPacks/DayYears UsedDateSmoking Tobacco: Never Assessed Estimated Date of XduxmaacGxwxsjflAkl34/23/2026ased on Ultrasound, FHR- 153Sex and Gender InformationValueDate RecordedSex Assigned at BirthNot on fileLegal FqsAimcje57/15/2023 6:53 PM EDTGender IdentityNot on fileSexual OrientationNot on file Last Filed Vital Signs Vital SignReadingTime TakenCommentsBlood Endjxvsi289/80107/03/2024 10:32 AM EST Pulse--Temperature--Respiratory Rate--Oxygen Saturation--Inhaled Oxygen Concentration--Cumtkc67.5 kg (126 lb 12 oz)05/02/2025 10:32 AM ESTHeight--Body Mass Index-- Plan of Treatment DateTypeDepartmentCare Team (Latest Contact Info)Xcyezlcaedc88/29/2025 2:00 PM ESTRoutine [facility] [address] [facility] [place] [phone] Robyn Beauchamp PA [address] [facility] [place] [address] Procedures Procedure NamePriorityDate/TimeAssociated DiagnosisCommentsRECURRENT VAGINITIS (HTRX)Uifxhtz2305/02/2025 12:02 PM EST POCT URINALYSIS UESFNVMEQrclqfo56/15/2025 10:40 AM EST 26 weeks gestation of ([facility]) IGP,APTIMA HPV,AGE GMPKLqdtrjf94/15/2025 10:22 AM EST POCT URINALYSIS HANJVUZOFkthkbb43/12/2025 2:57 PM EST 21 weeks gestation of ([facility]) US OB 14+ WEEKS ANATOMY HAICVkywpic04/12/2025 2:12 PM EST Screening, , for anatomic survey ([facility]) AFP, SERUM, OPEN SPINA NFQWLRNoywvva36/05/2025 9:06 AM EST POCT URINALYSIS JGSZLNNMCgrmrou49/15/2025 11:44 AM EDT 17 weeks gestation of ([facility]) HBSAG YZVNLREaypbpg93/29/2025 9:30 AM EDT RAPID PLASMA REAGIN, MCZWLKcwpgmi29/29/2025 9:30 AM EDT HCV ANTIBODY RFX TO QUANT LXXXnudejx66/29/2025 9:30 AM EDT ALL RUBELLA IGG DSPfcqioh46/29/2025 9:30 AM EDT HIV AB/P24 AG WITH DWXMWJMrspapa25/29/2025 9:30 AM EDT ALL TYPE AND PLETSQYwyoxou98/29/2025 9:30 AM EDT MLR HEMOGLOBIN A7GUecpiwz36/29/2025 9:30 AM EDT ALL CBC WITH AUTO DMQSXjjevyu08/29/2025 9:30 AM EDT BOX CEXAEfydrnc90/29/2025 9:30 AM EDT CANNABINOID CONF, MS, RZFitaxjz70/29/2025 9:17 AM EDT TBH DRUG SCREEN RAPID (URINE)Trwzatf8902/14/2025 9:17 AM EDT POCT URINALYSIS KBZUJMMDDsavutg30/19/2025 10:33 AM EDT Missed menses POCT , LRKCHIebbxqr79/19/2025 10:33 AM EDT Missed menses US OB XSUGETSNFVQZSaehvtp66/19/2025 10:29 AM EDT Missed menses Positive urine test ([facility]) from Last 3 Months Results * RECURRENT VAGINITIS (HTRX) (05/02/2025 12:02 PM EST)ComponentValueRef Range Test MethodAnalysis TimePerformed AtPathologist SignatureATOPOBIUM VAGINAE0 19.961 - 24.689 ppm05/03/2025 7:32 AM ESTHealthTrackRx at LabPortATOPOBIUM VAGINAENot Tpzleqil48.961 - 24.689 ppm05/03/2025 7:32 AM ESTHealthTrackRx at LabPortBVAB 2,3 (BACTERIAL VAGINOSIS ASSOCIATED BACTERIA 2, 3); MOBILUNCUS SPP 019.961 - 24.689 ppm05/03/2025 7:32 AM ESTHealthTrackRx at LabPortBVAB 2,3 (BACTERIAL VAGINOSIS ASSOCIATED BACTERIA 2, 3); MOBILUNCUS SPPNot Detected 19.961 - 24.689 ppm05/03/2025 7:32 AM ESTHealthTrackRx at LabPortCANDIDA ALBICANS, PARAPSILOSIS, TJXUTVXJQB304.000 - 30.347 ppm05/03/2025 7:32 AM EST [facility] at LabPortCANDIDA ALBICANS, PARAPSILOSIS, TROPICALISNot Detected 23.000 - 30.347 ppm05/03/2025 7:32 AM ESTHealthTrackRx at LabPortCANDIDA QIYVWCLX201.000 - 31.618 ppm05/03/2025 7:32 AM ESTHealthTrackRx at LabPort LATHA GLABRATANot Kslsqilm41.000 - 31.618 ppm05/03/2025 7:32 AM EST [facility] at LabPortCANDIDA YGSZQL413.000 - 30.873 ppm05/03/2025 7:32 AM ESTHealthTrackRx at LabPortCANDIDA KRUSEINot Eenhkdyu63.000 - 30.873 ppm 05/03/2025 7:32 AM ESTHealthTrackRx at LabPortCHLAMYDIA PKSTREUDWAK306.000 - 31.586 ppm05/03/2025 7:32 AM ESTHealthTrackRx at LabPortCHLAMYDIA TRACHOMATIS Not Gfoehacp58.000 - 31.586 ppm05/03/2025 7:32 AM ESTHealthTrackRx at [facility] GARDNERELLA CMRVXJFAX585.961 - 24.689 ppm05/03/2025 7:32 AM ESTHealthTrackRx at LabPortGARDNERELLA VAGINALISNot Yucgbadz20.961 - 24.689 ppm05/03/2025 7:32 AM ESTHealthTrackRx at LabPortMEGASPHAERA (TYPES 1, 2)019.961 - 24.689 ppm 05/03/2025 7:32 AM ESTHealthTrackRx at LabPortMEGASPHAERA (TYPES 1, 2)Not Ovwpqxor03.961 - 24.689 ppm05/03/2025 7:32 AM ESTHealthTrackRx at [facility] NEISSERIA PNUKBSBPSMG094.000 - 32.587 ppm05/03/2025 7:32 AM ESTHealthTrackRx at LabPortNEISSERIA GONORRHOEAENot Axyjwylx83.000 - 32.587 ppm05/03/2025 7:32 AM ESTHealthTrackRx at LabPortTRICHOMONAS GXTRSAEEG025.000 - 31.995 ppm 05/03/2025 7:32 AM ESTHealthTrackRx at LabPortTRICHOMONAS VAGINALISNot Yogxglfa61.000 - 31.995 ppm05/03/2025 7:32 AM ESTHealthTrackRx at [facility] MYCOPLASMA PZEVLIPAKT574.961 - 24.689 ppm05/03/2025 7:32 AM ESTHealthTrackRx at LabPortMYCOPLASMA GENITALIUMNot Hlpsuwnh12.961 - 24.689 ppm05/03/2025 7:32 AM ESTHealthTrackRx at LabPortSpecimen (Source)Anatomical Location / LateralityCollection Method / VolumeCollection TimeReceived TimeTissue 05/02/2025 12:02 PM EST05/03/2025 1:31 AM EST Narrative Authorizing ProviderResult TypeResult StatusCorey Stanton DOLAB BLOOD ORDERABLES Final ResultPerforming OrganizationAddressCity/State/ZIP CodePhone Number [facility] [address] [address] * POCT urinalysis dipstick manually resulted (05/02/2025 10:40 AM EST) Only the most recent of4 resultswithin the time period is included. ComponentValueRef RangeTest MethodAnalysis TimePerformed AtPathologist Signature Color, UAYellowClarity, UAClearGlucose, UANegativeNegative - 2000(110) ++++ mg/dLBilirubin, UANegativeNegative - 4(70) +++ mg/dLKetones, UANegativeNegative - 160(16) ++++ mg/dLSpec Grav, UA1.0101 - 1.03Blood, UANegativeNegative - 50 Travis/mcLpH, UA6.05 - 9Protein, UANegativeNegative - 2000(20) ++++ mg/dL Urobilinogen, UA0.20.2 - 12 mg/dLLeukocytes, UANegativeNegative - 500+++ Lala/mcL Nitrite, UANegativeNegative - PositiveSpecimen (Source)Anatomical Location / LateralityCollection Method / VolumeCollection TimeReceived JouoPrrfu36/15/2025 10:40 AM EST Narrative Authorizing ProviderResult TypeResult StatusCoreshravan Eid DOPOINT OF CARE TEST ENTER/EDIT ORDERABLESFinal Result * IGP,APTIMA HPV,AGE GDLN (05/02/2025 10:22 AM EST)ComponentValueRef RangeTest MethodAnalysis TimePerformed AtPathologist SignatureAGE GDLN ACOG TESTINGNote. TBHComment: ?? TESTS ? RESULT ??FLAG ??UNITS ?REF RANGE ??LAB ?? Clinician Provided Cytology Information ?? Source.............Vagina ?? Other.............. ?? No. of containers..01 ThinPrep Vial Age Algo ACOG Keena... ??30-65 ? 01 ?FLAG LEGEND: ?L-Low Normal,H-High Normal,LL-Alert Low,HH-Alert High <-Panic Low,>-Panic High,A-Abnormal,AA-Critical Abnormal Performed at: 01 =G ?[facility] [place] ?? [address] [place] ??[phone] ?? Stacey Huang MD, IGP, APTIMA HPV, RFX 16/18,45Note.TBHComment: ?? TESTS ? RESULT ??FLAG ??UNITS ?REF RANGE ??LAB DIAGNOSIS: ?02 ?? NEGATIVE FOR INTRAEPITHELIAL LESION OR MALIGNANCY. Specimen adequacy: ?02 ?? Satisfactory for evaluation. ??No endocervical component is identified. ?? An endocervical component is not commonly seen in the patient. Performed by: ? 02 ?? Lul Soares Tensioning Machine Operator (ASCP) . ? 02 Note: ? Note ?02 ?? The Pap smear is a screening test designed to aid in the ?? detection of premalignant and malignant conditions of the ?? uterine cervix. ??It is not a diagnostic procedure and ?? should not be used as the sole means of detecting cervical ?? cancer. ??Both false-positive and false-negative reports do ?? occur. Test Methodology: ? Note ?02 ?? This liquid based ThinPrep(R) pap test was interpreted ?? using the [employer](R) Genius(TM) Cervical Algorithm whole ?? slide imaging system. HPV Genotype Reflex ?? Note ?02 ?? Criteria not met, HPV Genotype not performed. ?FLAG LEGEND: ?L-Low Normal,H-High Normal,LL-Alert Low,HH-Alert High <-Panic Low,>-Panic High,A-Abnormal,AA-Critical Abnormal Performed at: 02 WB ?[facility] [place] ?? [address] [place], [place] ??[phone] ?? Stacey Huang MD, HPV APTIMANegativeNegativeTBHComment: This nucleic acid amplification test detects fourteen high- risk HPV types (16,18,31,33,35,39,45,51,52,56,58,59,66,68) without differentiation. Performed at: ??=G - [facility] ??[id number] Information Technology Teacher: Stacey Huang MD, Phone: ??[phone] Performed at: ?? - [facility] ??[id number] Information Technology Teacher: Stacey Huang MD, Phone: ??[phone] Specimen (Source)Anatomical Location / LateralityCollection Method / Volume Collection TimeReceived Time05/02/2025 10:22 AM EST05/02/2025 12:52 PM EST Narrative [facility] - 05/04/2025 10:08 AM EST SPATULA-ALONE VAGINA Authorizing ProviderResult TypeResult StatusCorey Stanton DOLAB BLOOD ORDERABLES Final ResultPerforming OrganizationAddressCity/State/ZIP CodePhone Number [facility] * US OB 14+ weeks anatomy scan (03/30/2025 2:12 PM EST)Anatomical Region LateralityModalityBodyUltrasoundSpecimen (Source)Anatomical Location / LateralityCollection Method / VolumeCollection TimeReceived Time03/30/2025 8:37 PM EST Impressions 03/31/2025 7:14 AM EST Single, live intrauterine , current sonographic age of 21 weeks and 1 days, with an estimated date of delivery of August 09, 2025. TRANSCRIBED BY: ? ELECTRONICALLY SIGNED BY: Zach Christianson MD Narrative 03/31/2025 7:14 AM EST FINDINGS: A single, live intrauterine is present with normal cardiac rate of ?? beats per minute. Normal activity and amniotic fluid volume.Morphology is grossly normal. The placenta is anterior fundal, inferior aspect 7.0 cm from the closed internal cervical os, cervical length 4.7 cm.??The current sonographic age is 21 ??weeks and ??1 days, based on the following measurements: BPD ?5.0cm (21 weeks,1 ??days) Head Circumference ? 18.2cm (22 weeks,0 ??days) Abdominal Circumference ? 16.4cm (21 weeks, 3 days) Femur Length ? 3.6cm (21 weeks, 3 days) Presentation ? Variable Placenta ? Anterior fundal Weight (g) by Percentile ??46.7 % * These measurements result in an estimated date of delivery of ??August 09, 2025. ?? The current estimated weight is 416 ?? grams ( ??pound, 15 ??ounces). ?? Procedure Note Zach Christianson MD - 03/31/2025 FINDINGS: A single, live intrauterine is present with normal cardiacrate of beats per minute. Normal activity and amniotic fluidvolume.Morphology is grossly normal. The placenta is anterior fundal,inferior aspect 7.0 cm from the closed internal cervical os, cervicallength 4.7 cm. The current sonographic age is 21 weeks and 1 days,based on the following measurements: BPD 5.0cm (21 weeks,1 days) Head Circumference 18.2cm (22 weeks,0 days) Abdominal Circumference 16.4cm (21 weeks, 3 days) Femur Length 3.6cm (21 weeks, 3 days) Presentation Variable Placenta Anterior fundal Weight (g) by Percentile 46.7 % * These measurements result in an estimated date of delivery of July. The current estimated weight is 416 grams ( pound, 15ounces). IMPRESSION: Single, live intrauterine , current sonographic age of 21 weeksand 1 days, with an estimated date of delivery of August 09, 2025. TRANSCRIBED BY: ELECTRONICALLY SIGNED BY: Zach Christianson MD Authorizing ProviderResult TypeResult StatusCorey Stanton DOIMG OB US PROCEDURES Final Result * AFP, SERUM, OPEN SPINA BIFIDA (03/23/2025 9:06 AM EST)ComponentValueRef Range Test MethodAnalysis TimePerformed AtPathologist SignatureRESULTSReport.TBHTEST RESULTS:*Screen Negative*.TBHGEST. AGE ON COLLECTION DATE20.3. weeksTBHGESTAT. AGE BASED ONUltrasound.TBHComment: ?17.3 on 03/02/2025 Recalculations are not recommended when gestational dating by LMP and ultrasound are within 10 days. MATERNAL AGE AT EDD31.1. yrTBHRACECaucasian.XFXUJICXE332. lbsTBHINSULIN DEP DIABETESNo.TBHMULTIPLE GESTATIONNo.TBHAFP JMBPO152.9. ng/mLTBHAFP MOM1.50.[facility] OSBR RISK 1 [id number].TBHINTERPRETATIONComment.TBHComment: Interpretation: Screen Negative This result is screen negative for OSB. The AFP MoM calculated is based on the gestational age provided. MS-AFP can identify up to 80% of open neural tube defects. Closed neural tube defects and some open defects may not be detected by this test. This test does not screen for Down Syndrome or Trisomy 18. If screening for Down Syndrome or Trisomy 18 is desired, contact [facility] to discuss available options. ??The [employer] recommends amniocentesis be offered to women age 35 and older. COMMENT:Comment.TBHComment: Shaniqua Hairston Ph.D., [employer] Director References: Available Upon Request. Multiples Of Median Cutoffs ?For AFP Elevations Min ?? 2.5 ? Black ?2.8 IDD ? 2.0 ? Twins ?4.5 ?Abbreviation Definitions IDD - Insulin Dep Diabetes OSBR - Open Spina Bifida Risk For further inquiries contact [employer] [facility] at [phone]. This test was developed and its performance characteristics determined by [employer]. It has not been cleared or approved by the Food and Drug Administration. Performed at: ??TG - [facility] [address] [place], [place] ??[id number] Information Technology Teacher: Alcon Anderson [facility], Phone: ??[phone] Specimen (Source)Anatomical Location / LateralityCollection Method / Volume Collection TimeReceived Time03/23/2025 9:06 AM EST03/23/2025 9:07 AM EST Narrative [facility] - 03/25/2025 1:07 AM EST N N ULTRASOUND [id number] 2 17 N 1 Y 107 N N N N N White/ Authorizing ProviderResult TypeResult StatusCorey Stanton DOLAB BLOOD ORDERABLES Final ResultPerforming OrganizationAddressCity/State/ZIP CodePhone Number [facility] * BOX TEST (02/14/2025 9:30 AM EDT)ComponentValueRef RangeTest MethodAnalysis TimePerformed AtPathologist SignatureBOX TEST SENT PYPXJKJUWGHX8JZCUMPPONVO2 02/14/25TBHSpecimen (Source)Anatomical Location / LateralityCollection Method / VolumeCollection TimeReceived Time02/14/2025 9:30 AM EDT02/14/2025 9:37 AM EDT Narrative [facility] - 02/14/2025 10:13 AM EDT Authorizing ProviderResult TypeResult StatusAmy Inglewood PALAB BLOOD ORDERABLES Final ResultPerforming OrganizationAddressCity/State/ZIP CodePhone Number [facility] * HBSAG SCREEN (02/14/2025 9:30 AM EDT)ComponentValueRef RangeTest Method Analysis TimePerformed AtPathologist SignatureHBSAG SCREENNegativeNegativeTBH Comment: Performed at: ??[address] ??[id number] Information Technology Teacher: Linus Pollard PhD, Phone: ??[phone] Specimen (Source)Anatomical Location / LateralityCollection Method / Volume Collection TimeReceived Time02/14/2025 9:30 AM EDT02/14/2025 9:37 AM EDT Narrative [facility] - 02/15/2025 1:08 PM EDT Authorizing ProviderResult TypeResult StatusCorey Stanton DOLAB BLOOD ORDERABLES Final ResultPerforming OrganizationAddressCity/State/ZIP CodePhone Number [facility] * RAPID PLASMA REAGIN, QUANT (02/14/2025 9:30 [...] utilized, such as Treponema pallidum (Syphilis) Screening Boundary ([id number]) or Rapid Plasma Reagin (RPR) Test With Reflex to Quantitative RPR and Confirmatory Treponema pallidum Antibodies ([id number]). Performed at: ??[address] ??[id number] Information Technology Teacher: Linus Plolard PhD, Phone: ??[phone] Specimen (Source)Anatomical Location / LateralityCollection Method / Volume Collection TimeReceived Time02/14/2025 9:30 AM EDT02/14/2025 9:37 AM EDT Narrative [facility] - 02/15/2025 1:08 PM EDT Authorizing ProviderResult TypeResult StatusCorey Stanton DOLAB BLOOD ORDERABLES Final ResultPerforming OrganizationAddressty/State/ZIP CodePhone Number [facility] * HIV AB/P24 AG WITH REFLEX (02/14/2025 9:30 AM EDT)ComponentValueRef RangeTest MethodAnalysis TimePerformed AtPathologist SignatureHIV AB/P24 AG SCREENNon ReactiveNon ReactiveTBHComment: HIV-1/HIV-2 antibodies and HIV-1 p24 antigen were NOT detected. There is no laboratory evidence of HIV infection. HIV Negative Performed at: ??[address] ??[id number] Information Technology Teacher: Linus Pollard PhD, Phone: ??[phone] Specimen (Source)Anatomical Location / LateralityCollection Method / Volume Collection TimeReceived Time02/14/2025 9:30 AM EDT02/14/2025 9:37 AM EDT Narrative [facility] - 02/15/2025 5:08 AM EDT Authorizing ProviderResult TypeResult StatusCorey Stanton DOLAB BLOOD ORDERABLES Final ResultPerforming OrganizationAddressCity/State/ZIP CodePhone Number [facility] * HCV ANTIBODY RFX TO QUANT PCR (02/14/2025 9:30 AM EDT)ComponentValueRef Range Test MethodAnalysis TimePerformed AtPathologist SignatureHCV ABNon ReactiveNon ReactiveTBHINTERPRETATION:Comment.TBHComment: Not infected with HCV unless early or acute infection is suspected (which may be delayed in an immunocompromised individual), or other evidence exists to indicate HCV infection. Performed at: ??[address] ??[id number] Information Technology Teacher: Linus Pollard PhD, Phone: ??[phone] Specimen (Source)Anatomical Location / LateralityCollection Method / Volume Collection TimeReceived Time02/14/2025 9:30 AM EDT02/14/2025 9:37 AM EDT Narrative [facility] - 02/15/2025 7:07 AM EDT Authorizing ProviderResult TypeResult StatusCorey Stanton DOLAB BLOOD ORDERABLES Final ResultPerforming OrganizationAddressCity/State/ZIP CodePhone Number [facility] * MLR HEMOGLOBIN A1C (02/14/2025 9:30 AM EDT)ComponentValueRef RangeTest Method Analysis TimePerformed AtPathologist SignatureGLYCOHEMOGLOBIN A1C5.14.5 - 6.2 %TBHComment: ADA RECOMMENDED LIMIT 4.0 - 6.0 ADA THERAPEUTIC TARGET < 7.0 ACTION SUGGESTED > 7.0 ESTIMATED AVERAGE UWENDIX697jq/dLTBHSpecimen (Source)Anatomical Location / LateralityCollection Method / VolumeCollection TimeReceived Time02/14/2025 9:30 AM EDT02/14/2025 9:37 AM EDT Narrative [facility] - 02/14/2025 10:36 AM EDT Authorizing ProviderResult TypeResult StatusCorey Stanton DOCLINISYNCFinal Result Performing OrganizationAddressCity/State/ZIP CodePhone Number [facility] * ALL TYPE AND SCREEN (02/14/2025 9:30 AM EDT)ComponentValueRef RangeTest Method Analysis TimePerformed AtPathologist SignatureBLOOD TYPEO PositiveTBHANTIBODY SCREENNEGATIVETBHSpecimen (Source)Anatomical Location / LateralityCollection Method / VolumeCollection TimeReceived Time02/14/2025 9:30 AM EDT02/14/2025 9:37 AM EDT Narrative [facility] - 02/14/2025 11:51 AM EDT [facility] , ?? Authorizing ProviderResult TypeResult StatusCorey Stanton DOCLINISYNCFinal Result Performing OrganizationAddressCity/State/ZIP CodePhone Number [facility] * ALL RUBELLA IGG AB (02/14/2025 9:30 AM EDT)ComponentValueRef RangeTest Method Analysis TimePerformed AtPathologist SignatureRUBELLA ANTIBODIES, IGG5.74 Immune >0.99 indexTBHComment: Non-immune <0.90 ?Equivocal ??0.90 - 0.99 Immune >0.99 Performed at: ??CB - [facility] [address] ??[id number] Information Technology Teacher: Linus Pollard PhD, Phone: ??[phone] Specimen (Source)Anatomical Location / LateralityCollection Method / Volume Collection TimeReceived Time02/14/2025 9:30 AM EDT02/14/2025 9:37 AM EDT Narrative [facility] - 02/15/2025 7:07 AM EDT Authorizing ProviderResult TypeResult StatusCorey Stanton DOCLINISYNCFinal Result Performing OrganizationAddressCity/State/ZIP CodePhone Number [facility] * (ABNORMAL) ALL CBC WITH AUTO DIFF (02/14/2025 9:30 AM EDT)ComponentValueRef RangeTest MethodAnalysis TimePerformed AtPathologist SignatureTBH WBC8.74.0 - 11.0 10 3/uLTBHTBH RBC4.224.20 - 5.40 10 6/uLTBHTBH HGB13.312.0 - 16.0 g/dLTBH TBH HCT37.636.0 - 48.0 %TBHTBH MCV89.181.0 - 99.0 fLTBHTBH MCH31.526.7 - 34.0 pgTBHTBH MCHC35.4(H)29.9 - 35.2 g/dLTBHTBH RDW12.111.0 - 15.0 %TBHTBH FIT937 150 - 450 10 3/uLTBHTBH MPV9.2(L)9.5 - [...] 9:30 AM EDT02/14/2025 9:37 AM EDT Narrative [facility] - 02/14/2025 10:17 AM EDT Authorizing ProviderResult TypeResult StatusCorey Stanton DOCLINISYNCFinal Result Performing OrganizationAddressCity/State/ZIP CodePhone Number [facility] * (ABNORMAL) TB DRUG SCREEN RAPID (URINE) (02/14/2025 9:17 AM [...] 9:17 AM EDT02/14/2025 9:38 AM EDT Narrative [facility] - 02/14/2025 10:27 AM EDT Authorizing ProviderResult TypeResult StatusCorey Stanton DOCLINISYNCFinal Result Performing OrganizationAddressCity/State/ZIP CodePhone Number [facility] * (ABNORMAL) CANNABINOID CONF, MS, UR (02/14/2025 9:17 AM EDT)ComponentValueRef RangeTest MethodAnalysis TimePerformed AtPathologist SignatureCANNABINOID Positive(A).TBHCARBOXY THC CONF, MS, HY71Zjvemf=32 ng/mLTBHComment: Performed at: ??UI - [facility] [address] [place], [place] ??[id number] Information Technology Teacher: Leodan Martínez PhD, Phone: ??[phone] Specimen (Source)Anatomical Location / LateralityCollection Method / Volume Collection TimeReceived Time02/14/2025 9:17 AM EDT02/14/2025 10:29 AM EDT Narrative [facility] - 02/17/2025 5:09 PM EDT Authorizing ProviderResult TypeResult StatusCorey Stanton DOLAB BLOOD ORDERABLES Final ResultPerforming OrganizationAddressCity/State/ZIP CodePhone Number [facility] * (ABNORMAL) POCT , urine manually resulted [...] Zach Christianson MD Authorizing ProviderResult TypeResult StatusCorey [facility] US PROCEDURES Final Result from Last 3 Months Insurance Care Teams Team MemberRelationshipSpecialtyStart DateEnd Date Doug Rajput MD [address] [place] [address] PCP - GeneralFamily Medicine02/04/25
--- OUTSIDE RECORDS SUMMARY | 2025-05-04 10:57 | XMS_ITS | Encounter Summary ---
Author Organization [facility] Address [address] [place] [address] Care Team Providers Care Dye Stand Loader Name Role Phone Doug Rajput MD Primary Care Provider [phone] Encounter Details DateTypeDepartmentCare Team (Latest Contact Info)Cefpnttuaxx64/15/2025linisync Result Encounter [facility] External Department Unsolicited Chong Eid DO [address] [facility] [address] [place], [facility]11 Social History Tobacco UseTypesPacks/DayYears UsedDateSmoking Tobacco: Never Assessed Estimated Date of IrdnhydzCsdwqkdaXlf17/23/2026Based on Ultrasound, FHR- 153Sex and Gender InformationValueDate RecordedSex Assigned at BirthNot on fileLegal VvlAjgikl48/15/2023 6:53 PM EDTGender IdentityNot on fileSexual OrientationNot on filedocumented as of this encounter Plan of Treatment DateTypeDepartmentCare Team (Latest Contact Info)Qcdqzqqpsxe72/29/2025 2:00 PM ESTRoutine [facility] Reinaldo OBGYN [address] [facility] [place] [address] Robyn Beauchamp PA [address] [facility] [address] [place], [facility]11 documented as of this encounter Procedures Procedure NamePriorityDate/TimeAssociated DiagnosisCommentsIGP,APTIMA HPV,AGE VOGLAcvwjif09/15/2025 10:22 AM EST documented in this encounter Results * IGP,APTIMA HPV,AGE GDLN (05/02/2025 10:22 AM [...] at: 01 =G ?[facility] [place] ?? [address] [place] [place] ??[phone] ?? Stacey Huang MD, IGP, APTIMA HPV, RFX 16/18,45Note.TBHComment: ?? TESTS ? RESULT ??FLAG ??UNITS ?REF RANGE ??LAB DIAGNOSIS: ?02 ?? NEGATIVE FOR INTRAEPITHELIAL LESION OR MALIGNANCY. Specimen adequacy: ?02 ?? Satisfactory for evaluation. ??No endocervical component is identified. ?? An endocervical component is not commonly seen in the patient. Performed by: ? 02 ?? Lul Soares Dealmaker (ASCP) . ? 02 Note: ? Note [...] pap test was interpreted ?? using the HoloAnaBios(R) Genius(TM) Cervical Algorithm whole ?? slide imaging system. HPV Genotype Reflex ?? Note ?02 ?? Criteria not met, HPV Genotype not performed. ?FLAG LEGEND: ?L-Low Normal,H-High Normal,LL-Alert Low,HH-Alert High <-Panic Low,>-Panic High,A-Abnormal,AA-Critical Abnormal Performed at: 02 WB ?[facility] [place] ?? [address] [place], [place] ??[address] ?? Stacey Huang MD, HPV APTIMANegativeNegativeTBHComment: This nucleic acid amplification test detects fourteen high- risk HPV types (16,18,31,33,35,39,45,51,52,56,58,59,66,68) without differentiation. Performed at: ??=G - [facility] [address] ??[id number] Truck Headlight Assembler: Stacey Huang MD, Phone: ??[phone] Performed at: ??WB - [facility] ??[id number] Truck Headlight Assembler: Stacey Huang MD, Phone: ??[phone] Specimen (Source)Anatomical Location / LateralityCollection Method / Volume Collection TimeReceived Time05/02/2025 10:22 AM EST05/02/2025 12:52 PM EST Narrative [facility] - 05/04/2025 10:08 AM EST SPATULA-ALONE VAGINA Authorizing ProviderResult TypeResult StatusCorey Stanton DOLAB BLOOD ORDERABLES Final ResultPerforming OrganizationAddressCity/State/ZIP CodePhone Number [facility] documented in this encounter Visit Diagnoses Not on filedocumented in this encounter Care Teams Team MemberRelationshipSpecialtyStart DateEnd Date Doug Rajput MD [address] [place] [phone] PCP - GeneralFamily Medicine02/04/25documented as of this encounter
--- OUTSIDE RECORDS SUMMARY | 2025-05-04 10:57 | XMS_ITS | Patient Health Record ---
Author Organization [facility] in [place] Address [address] [place] [address] Care Team Providers Care Electrician Technician Name Role Phone Dawson Rajput Primary Care Provider [phone] Allergies No Known Allergies Results Component Value Reference Range Notes DRUG SCREEN RAPID (URINE) Reviewed date:02/14/2025 02:21:07 PM Interpretation: Performing Lab: Notes/Report: [facility] , Cannabinoid Screen Urine POSITIVE NEGATIVE Phencyclidine Screen UrineNEGATIVENEGATIVECocaine Screen UrineNEGATIVENEGATIVE Methamphetamines Screen UrineNEGATIVENEGATIVEOpiate Screen UrineNEGATIVENEGATIVE Amphetamine Screen UrineNEGATIVENEGATIVEBenzodiazepines Screen UrineNEGATIVE NEGATIVETricyclic Antidepressant UrineNEGATIVENEGATIVEMethadone Screen Urine NEGATIVENEGATIVEBarbiturates Screen UrineNEGATIVENEGATIVEOxycodone Screen Urine NEGATIVENEGATIVEBuprenorphine Screen UrineNEGATIVENEGATIVE DRUG CLASS TEST SYSTEM CUT-OFF CONCENTRATIONS ARE FOLLOWS: AMP (Amphetamine): 500 ng/mL BAR (Barbiturates): 200 ng/mL BZO (Benzodiazepines): 150 ng/mL BUP (Buprenorphine): 10 ng/mL BHARATHI (Cocaine): 150 ng/mL mAMP (Methamphetamine): 500 ng/mL MTD (Methadone): 200 ng/mL OPI (Opiates): 100 ng/mL OXY (Oxycodone): 100 ng/mL PCP (Phencyclidine): 25 ng/mL THC (Cannabinoids): 50 ng/mL TCA (Trycyclic Antidepressants): 300 ng/mL Performing Lab:see noteML - [facility] LBRUBELLA AB IGG Reviewed date:02/15/2025 08:08:58 AM Interpretation: Performing Lab: Notes/Report: [facility] ,Rubella Antibodies, IgG5.74Immune >0.99 index Non-immune <0.90 Equivocal 0.90 - 0.99 Immune >0.99 Performed at: [address] [id number] Network Strategist: Linus Pollard PhD, Phone: [phone] Performing Lab:[facility] LBHCV Antibody RFX to Quant PCR Reviewed date:02/15/2025 08:08:58 AM Interpretation: Performing Lab: Notes/Report: [facility] ,HCV AbNon ReactiveNon ReactiveInterpretation:Comment. Not infected with HCV unless early or acute infection is suspected (which may be delayed in an immunocompromised individual), or other evidence exists to indicate HCV infection. Performed at: [address] [id number] Network Strategist: Linus Pollard PhD, Phone: [phone] Performing Lab:see noteGood Samaritan Regional Medical CenterUrine Culture, Routine Reviewed date:02/16/2025 05:54:47 PM Interpretation: [...] Urine Culture, Routine Urine Culture, RoutinePerformed at: [facility] Urine Culture, Routine Urine Culture, [address] [place], [place] [id number] Urine Culture, Routine Urine Culture, RoutineLab Director: Linus Pollard PhD, Phone: [phone] Urine Culture, Routine Performing Lab:see note [facility] LB SEE REPORT - Wet Suit Gluer Id information not found for OBX-specific butter liquefier legend Cannabinoid Conf, MS, UR Reviewed date:02/17/2025 05:33:23 PM Interpretation: Performing Lab: Notes/Report: [facility] ,CannabinoidPositive.Carboxy THC Conf, MS, LX71Wgjtxj=44 ng/mL Performed at: UI - [facility] [place] [address], [place], [place] [id number] Network Strategist: Leodan Martínez PhD, Phone: [phone] Performing Lab:see noteLC - [facility] LBIGP,Aptima HPV,Age Gdln (Not yet reviewed by provider) Interpretation: Performing Lab: Notes/Report: SPATULA-ALONE VAGINA [facility] ,Age Gdln ACOG TestingNote. TESTS RESULT FLAG UNITS REF RANGE LAB Clinician Provided Cytology Information Source.............Vagina Other.............. No. of containers..01 ThinPrep Vial Age Algo ACOG Keena... 30-65 01 FLAG LEGEND: L-Low Normal,H-High Normal,LL-Alert Low,HH-Alert High <-Panic Low,>-Panic High,A-Abnormal,AA-Critical Abnormal Performed at: 01 =G [facility] [address] [facility] [place] [address] Stacey Huang MD, IGP, Aptima HPV, rfx 16/18,45Note. TESTS RESULT FLAG UNITS REF RANGE LAB DIAGNOSIS: 02 NEGATIVE FOR INTRAEPITHELIAL LESION OR MALIGNANCY. Specimen adequacy: 02 Satisfactory for evaluation. No endocervical component is identified. An endocervical component is not commonly seen in the patient. Performed by: Remedios Soares Classifier ([facility]) . 02 Note: Note 02 The Pap smear is a screening test designed to aid in the detection of premalignant and malignant conditions of the uterine cervix. It is not a diagnostic procedure and should not be used as the sole means of detecting cervical cancer. Both false-positive and false-negative reports do occur. Test Methodology: Note 02 This liquid based ThinPrep(R) pap test was interpreted using the CityPocketsRAtterocor(TM) Cervical Algorithm whole slide imaging system. HPV Genotype Reflex Note 02 Criteria not met, HPV Genotype not performed. FLAG LEGEND: L-Low Normal,H-High Normal,LL-Alert Low,HH-Alert High <-Panic Low,>-Panic High,A-Abnormal,AA-Critical Abnormal Performed at: [address] [place] [address] Stacey Huang MD, HPV AptimaNegativeNegative This nucleic acid amplification test detects fourteen high- risk HPV types (16,18,31,33,35,39,45,51,52,56,58,59,66,68) without differentiation. Performed at: =[address] [id number] Network Strategist: Stacey Huang MD, Phone: [phone] Performed at: [address] [id number] Network Strategist: Stacey Huang MD, Phone: [phone] Performing Lab:see [facility] LBHBsAg Screen Reviewed date:02/15/2025 04:57:55 PM Interpretation: Performing Lab: Notes/Report: [facility] ,HBsAg ScreenNegativeNegative Performed at: [address] [id number] Network Strategist: Linus Pollard PhD, Phone: [phone] Performing Lab:see [facility] LBRapid Plasma Reagin, Quant Reviewed date:02/15/2025 04:57:55 PM Interpretation: Performing Lab: Notes/Report: [facility] ,Rapid Plasma Reagin, QuantNon ReactiveNonRea<1:1 titer Please Note: This test does not meet current guidelines for screening and diagnosis of syphilis. This test is intended for following treatment response in patients being treated for syphilis infection. To screen for syphilis infection, a reflex cascade that includes both RPR and a treponema-specific assay should be utilized, such as Treponema pallidum (Syphilis) Screening Coffey (879597) or Rapid Plasma Reagin (RPR) Test With Reflex to Quantitative RPR and Confirmatory Treponema pallidum Antibodies (446473). Performed at: [address] [id number] Network Strategist: Linus Pollard PhD, Phone: [phone] Performing Lab:see [facility] LBHIV Ab/p24 Ag with Reflex Reviewed date:02/15/2025 08:08:58 AM Interpretation: Performing Lab: Notes/Report: [facility] ,HIV Ab/p24 Ag ScreenNon ReactiveNon Reactive HIV-1/HIV-2 antibodies and HIV-1 p24 antigen were NOT detected. There is no laboratory evidence of HIV infection. HIV Negative Performed at: [address] [id number] Network Strategist: Linus Pollard PhD, Phone: [phone] Performing Lab:see [facility] LBType and Screen Reviewed date:02/14/2025 02:21:07 PM Interpretation: Performing Lab: Notes/Report: [facility] ,[facility] TypeO PositiveAntibody ScreenNEGATIVEGLYCOHEMOGLOBIN A1C Reviewed date:02/14/2025 02:21:07 PM Interpretation: Performing Lab: Notes/Report: [facility] ,Glycohemoglobin A1C5.14.5-6.2 % ADA RECOMMENDED LIMIT 4.0 - 6.0 ADA THERAPEUTIC TARGET < 7.0 ACTION SUGGESTED > 7.0 Estimated Average Surruqc389Jowlkvpzeo Lab:see noteML - [facility] LB CBC AUTO DIFF Reviewed date:02/14/2025 02:21:07 PM Interpretation: Performing Lab: Notes/Report: [facility] ,White Blood Count8.74.0-11.0 10 3/uLRed Blood Count4.224.20-5.40 10 6/uL Uootjnwzbm33.312.0-16.0 g/vKKeyongbryx02.636.0-48.0 %Mean Corpuscular Xruirq28.1 81.0-99.0 fLMean Corpuscular Luiepkgkvt15.526.7-34.0 pgMean Corpuscular HGB Conc 35.429.9-35.2 g/dLRed Cell Distribution Width12.111.0-15.0 %Platelet Uyeyu086 150-450 10 3/uLMean Platelet Volume9.29.5-13.5 fLNeutrophils Percent Auto73.5 43.0-75.0 %Lymphocytes Percent Auto19.120.5-60.0 %Monocytes Percent Auto6.61.7- 12.0 %Eosinophils Percent Auto0.20.9-7.0 %Basophils Percent Auto0.30.2-2.0 % Immature Granulocytes Pct Auto0.30.0-0.5 %Neutrophils Absolute Auto6.41.4-6.5 10 3/uLLymphocytes Absolute Auto1.71.2-3.8 10 3/uLMonocytes Absolute Auto0.60.3-0.8 10 3/uLEosinophils Absolute Auto0.00.0-0.7 10 3/uLBasophils Absolute Auto0.00.0- 0.1 10 3/uLImmature Granulocytes Abs Auto0.030.00-0.03 10 3/uLPerforming Lab:see noteML - [facility] LBAFP, Serum, Open Spina Bifida Reviewed date:03/27/2025 04:12:50 PM Interpretation: Performing Lab: Notes/Report: N N ULTRASOUND [id number] 2 17 N 1 Y 107 N N N N N White/ [facility] ,ResultsReport.Test Results:*Screen Negative*.Gest. Age on Collection Date20.3. weeksGestat. Age Based OnUltrasound. 17.3 on 03/02/2025 Recalculations are not recommended when gestational dating by LMP and ultrasound are within 10 days. Maternal Age At EDD31.1. yrRaceCaucasian.Ncjatw498. lbsInsulin Dep DiabetesNo. Multiple GestationNo.AFP Kwvew565.9. ng/mLAFP MoM1.50.OSBR Risk 1 IX1847. InterpretationComment. Interpretation: Screen Negative This result is screen [...] Genetic Customer Services to discuss available options. The [employer] recommends amniocentesis be offered to women age 35 and older. Comment:Comment. Shaniqua Hairston, Ph.D., [facility] Director References: Available Upon Request. Multiples Of Median Cutoffs For AFP Elevations Min 2.5 Black 2.8 IDD 2.0 Twins 4.5 Abbreviation Definitions IDD - Insulin Dep Diabetes OSBR - Open Spina Bifida Risk For further inquiries contact [employer] [facility] at [phone]. This test was developed and its performance characteristics determined by [employer]. It has not been cleared or approved by the Food and Drug Administration. Performed at: - [facility] [place] [address] [facility], [facility], [place] [id number] Network Strategist: Alcon Anderson [facility], Phone: [phone] Performing Lab:see noteLC - [facility] LBUnity Box Reviewed date:02/14/2025 02:21:07 PM Interpretation: Performing Lab: Notes/Report: [facility] ,BOX Test Sent OutYESBOX Test Reference LabUNITYBOX Test Date Sent02/14/25 Performing Lab:see noteML - [facility] LB Reason For Referral No Information Medications Medication SIG (Take, Route, Frequency, Duration) Notes Start Date End Date Status Ondansetron 4 MG 1 tablet on the tong ue and allow to dissolve Orally Q 4 h; Duration: 30 days 12/27/2024tive Social History Tobacco Use: Social History Observation [...] alcohol in the p ast year? No Cfaper2BeyrxmwksacxokPosdjifg Vital Signs Blood pressure diastolic 58 mm Hg 12/27/2024 Iwyjtg38 in12/27/2024lood pressure ahtfsovb38 mm Hg12/27/20248873Rsejzg82.4 lbs 12/27/2024BMI18.24 kg/m212/27/2024 Encounters Encounter Location Date Provider Diagnosis [facility] [address] [place] [address] 12/27/2024 Dawson Hoy Morning sickness O21 .0 Assessments Encounter Date Diagnosis (ICD Code) Assessment Notes Treatment Notes Treatment Clinical Notes Section Notes 12/27/2024 Morning sickness (ICD-10 - O21.0 ) Plan Of Treatment Pending Test Test Name Order Date IGP,Aptima HPV,Age Gdln 05/02/2025 Medical (General) History Medical History History ICD Code Staph infection Left ankle Hospitalization History Reason Date(Month/Year) staph infection as a child
--- OUTSIDE RECORDS SUMMARY | 2025-05-04 10:57 | XMS_ITS | Encounter Summary ---
Author Organization [facility] Address [address] [place] [place] [address] Care Team Providers Care Wood Router Name Role Phone Doug Rajput MD Primary Care Provider [phone] Encounter Details DateTypeDepartmentCare Team (Latest Contact Info)Ndxfbbseqnq90/15/2025amboo flowsheet NOMVinay PAYNE [address] [facility] [address] [place] [address] Chong Eid DO [address] [facility] [address] [place], [facility] Social History Tobacco UseTypesPacks/DayYears UsedDateSmoking Tobacco: Never Assessed Estimated Date of OhyubqqwMmbupplaDsc75/23/2026Based on Ultrasound, FHR- 153Sex and Gender InformationValueDate RecordedSex Assigned at BirthNot on fileLegal GfnHlupyt10/15/2023 6:53 PM EDTGender IdentityNot on fileSexual OrientationNot on filedocumented as of this encounter Plan of Treatment DateTypeDepartmentCare Team (Latest Contact Info)Vwwhgkxltef02/29/2025 2:00 PM ESTRoutine [facility] Reinaldo PAYNE [address] [place] [address] Robyn Beauchamp PA [address] [facility] [place] [address] documented as of this encounter Visit Diagnoses Not on filedocumented in this encounter Care Teams Team MemberRelationshipSpecialtyStart DateEnd Date Doug Rajput MD [address] [place] [address] PCP - GeneralFamily Medicine02/04/25documented as of this encounter
--- OUTSIDE RECORDS SUMMARY | 2025-05-04 10:57 | XMS_ITS | Encounter Summary ---
Author Organization [facility] Address [address] [place] [address] Care Team Providers Care Electrical Assembly Supervisor Name Role Phone Doug Rajput MD Primary Care Provider [phone] Encounter Details DateTypeDepartmentCare Team (Latest Contact Info)Eeeunaxnqqr82/15/2025External Result Encounter NOMS External Department Unsolicited Chong Eid DO [address] [facility] [address] [place], [facility]11 Social History Tobacco UseTypesPacks/DayYears UsedDateSmoking Tobacco: Never Assessed Estimated Date of BxcumthuSogbytodVtu31/23/2026Based on Ultrasound, FHR- 153Sex and Gender InformationValueDate RecordedSex Assigned at BirthNot on fileLegal JfbZojzdz16/15/2023 6:53 PM EDTGender IdentityNot on fileSexual OrientationNot on filedocumented as of this encounter Plan of Treatment DateTypeDepartmentCare Team (Latest Contact Info)Xxwnslurzwe54/29/2025 2:00 PM ESTRoutine [facility] Reinaldo OBGYOliver [address] [facility] [place] [address] Robyn Beauchamp PA [address] [facility] [address] [place], [place] [address] documented as of this encounter Procedures Procedure NamePriorityDate/TimeAssociated DiagnosisCommentsRECURRENT VAGINITIS (HTRX)Ltdxgcd0805/02/2025 12:02 PM EST documented in this encounter Results * RECURRENT VAGINITIS (HTRX) (05/02/2025 12:02 PM EST)ComponentValueRef Range Test MethodAnalysis TimePerformed AtPathologist SignatureATOPOBIUM VAGINAE0 19.961 - 24.689 ppm05/03/2025 7:32 AM ESTHealthTrackRx at LabPortATOPOBIUM VAGINAENot Urlaksoh26.961 - 24.689 ppm05/03/2025 7:32 AM ESTHealthTrackRx at LabPortBVAB 2,3 (BACTERIAL VAGINOSIS ASSOCIATED BACTERIA 2, 3); MOBILUNCUS SPP 019.961 - 24.689 ppm05/03/2025 7:32 AM ESTHealthTrackRx at LabPortBVAB 2,3 (BACTERIAL VAGINOSIS ASSOCIATED BACTERIA 2, 3); MOBILUNCUS SPPNot Detected 19.961 - 24.689 ppm05/03/2025 7:32 AM ESTHealthTrackRx at LabPortCANDIDA ALBICANS, PARAPSILOSIS, ZXKGUSUFQP442.000 - 30.347 ppm05/03/2025 7:32 AM EST [facility] at LabPortCANDIDA ALBICANS, PARAPSILOSIS, TROPICALISNot Detected 23.000 - 30.347 ppm05/03/2025 7:32 AM ESTHealthTrackRx at LabPortCANDIDA XKBVSZUV009.000 - 31.618 ppm05/03/2025 7:32 AM ESTHealthTrackRx at [facility] LATHA GLABRATANot Whlsogom76.000 - 31.618 ppm05/03/2025 7:32 AM EST [facility] at LabPortCANDIDA SOLOQS170.000 - 30.873 ppm05/03/2025 7:32 AM ESTHealthTrackRx at LabPortCANDIDA KRUSEINot Czdpskuk72.000 - 30.873 ppm 05/03/2025 7:32 AM ESTHealthTrackRx at LabPortCHLAMYDIA HRUIMIXEEII098.000 - 31.586 ppm05/03/2025 7:32 AM ESTHealthTrackRx at LabPortCHLAMYDIA TRACHOMATIS Not Dmqwezfs28.000 - 31.586 ppm05/03/2025 7:32 AM ESTHealthTrackRx at [facility] GARDNERELLA URXJYKBHB752.961 - 24.689 ppm05/03/2025 7:32 AM ESTHealthTrackRx at LabPortGARDNERELLA VAGINALISNot Wcneziuj61.961 - 24.689 ppm05/03/2025 7:32 AM ESTHealthTrackRx at LabPortMEGASPHAERA (TYPES 1, 2)019.961 - 24.689 ppm 05/03/2025 7:32 AM ESTHealthTrackRx at LabPortMEGASPHAERA (TYPES 1, 2)Not Unhysben81.961 - 24.689 ppm05/03/2025 7:32 AM ESTHealthTrackRx at [facility] NEISSERIA XGNWWEZVDMV255.000 - 32.587 ppm05/03/2025 7:32 AM ESTHealthTrackRx at LabPortNEISSERIA GONORRHOEAENot Zausqbko42.000 - 32.587 ppm05/03/2025 7:32 AM ESTHealthTrackRx at LabPortTRICHOMONAS NLWRBLHFH735.000 - 31.995 ppm 05/03/2025 7:32 AM ESTHealthTrackRx at LabPortTRICHOMONAS VAGINALISNot Srprjqad08.000 - 31.995 ppm05/03/2025 7:32 AM ESTHealthTrackRx at [facility] MYCOPLASMA CLAYEYSOEM336.961 - 24.689 ppm05/03/2025 7:32 AM ESTHealthTrackRx at LabPortMYCOPLASMA GENITALIUMNot Dziciyml66.961 - 24.689 ppm05/03/2025 7:32 AM ESTHealthTrackRx at LabPortSpecimen (Source)Anatomical Location / LateralityCollection Method / VolumeCollection TimeReceived TimeTissue 05/02/2025 12:02 PM EST05/03/2025 1:31 AM EST Narrative Authorizing ProviderResult TypeResult StatusCorey Stanton DOLAB BLOOD ORDERABLES Final ResultPerforming OrganizationAddressCity/State/ZIP CodePhone Number [facility] [address] [address] documented in this encounter Visit Diagnoses Not on filedocumented in this encounter Care Teams Team MemberRelationshipSpecialtyStart DateEnd Date Doug Rajput MD [address] [facility] [place] [address] PCP - GeneralFamily Medicine02/04/25documented as of this encounter
[2025-05-04 12:58] LABS: Hematocrit 33.8 % (36.0-48.0); Hemoglobin 11.3 g/dL (12.0-16.0); Immature Granulocytes Abs Auto 0.09 10^3/uL (0.00-0.03); Immature Granulocytes Pct Auto 1.0 % (0.0-0.5); Lymphocytes Absolute Auto 1.6 10^3/uL (1.2-3.8); Mean Corpuscular HGB Conc 33.4 g/dL (29.9-35.2); Mean Corpuscular Hemoglobin 31.1 pg (26.7-34.0); Mean Corpuscular Volume 93.1 fL (81.0-99.0); Platelet Count 249 10^3/uL (150-450); Red Blood Count 3.63 10^6/uL (4.20-5.40); White Blood Count 9.4 10^3/uL (4.0-11.0)
[2025-05-04 14:00] LABS: Glucose 1 Hour 153 mg/dL (<130)
== END 2025-05-04 10:45 | disposition home or self-care (01) ==
LOC: LAB 10:54
PROVIDERS: PCP Family Medicine; Visit Provider Obstetrics & Gynecology
DX: Z13.1 Encounter for screening for diabetes mellitus (principal)
CPT/HCPCS: 36415; 82950; 85025

== ENCOUNTER 2025-05-10 09:14 | Outpatient (OUT) | payer OTHER, SELFPAY ==
--- OUTSIDE RECORDS SUMMARY | 2025-05-02 10:10 | XMS_ITS | Encounter Summary ---
Author Organization [facility] Address [address] [place] [address] Care Team Providers Care Locker Room Clerk Name Role Phone Doug Rajput MD Primary Care Provider [phone] Reason for Visit * ReasonCommentsRoutine Visit Encounter Details DateTypeDepartmentCare Team (Latest Contact Info)Qgknjclblmf86/15/2025 10:10 AM ESTRoutine [facility] [address] [place] [address] Chong Eid DO [address] [place] [address] Second trimester ([facility]); 26 weeks gestation of ([facility]); Diabetes mellitus screening; Well woman exam with routine gynecological exam; STD exposure Social History Tobacco UseTypesPacks/DayYears UsedDateSmoking Tobacco: Never Assessed Estimated Date of ArndbyaiAldevihlVpf19/23/2026ased on Ultrasound, FHR- 153Sex and Gender InformationValueDate RecordedSex Assigned at BirthNot on fileLegal ArfQljqir65/15/2023 6:53 PM EDTGender IdentityNot on fileSexual OrientationNot on filedocumented as of this encounter Last Filed Vital Signs Vital SignReadingTime TakenCommentsBlood Xrvbmplk959/80107/03/2024 10:32 AM EST Pulse--Temperature--Respiratory Rate--Oxygen Saturation--Inhaled Oxygen Concentration--Whlhzh18.5 kg (126 lb 12 oz)05/02/2025 10:32 AM ESTHeight--Body Mass Index--documented in this encounter Progress Notes * Wilma Morse NP - 05/02/2025 10:10 AM EST Reason for Appointment: Patient ID: Alcon Kirby is a 29 y.o. female who presents for Routine Visit Patient presents today for Annual Exam. and Return OB appointment. MEDICATIONS Current Outpatient Medications Medication Instructions ondansetron ODT (ZOFRAN-ODT) 4 mg, Every 6 hours PRN promethazine (PHENERGAN) 12.5 mg, Oral, Every 6 hours PRN, Take 1 tablet by mouth every 6 hours as needed for nausea. ALLERGIES No Known Allergies PROBLEMS Active Ambulatory Problems Diagnosis Date Noted No Active Ambulatory Problems Resolved Ambulatory Problems Diagnosis Date Noted No Resolved Ambulatory Problems Past Medical History: Diagnosis Date H/O herpes simplex infection HISTORY PAST MEDICAL HISTORY SOCIAL HISTORY Past Medical History: Diagnosis Date H/O herpes simplex infection Social History Tobacco Use Smoking status: Not on file Smokeless tobacco: Not on file Substance Use Topics Alcohol use: Not on file Drug use: Not on file FAMILY HISTORY Family History Problem Relation Name Age of Onset Hypertension Mother SURGICAL HISTORY Past Surgical History: Procedure Laterality Date ANKLE SURGERY Left REVIEW OF SYSTEMS Review of Systems: Review of Systems Constitutional: Negative. HENT: Negative. Eyes: Negative. Respiratory: Negative. Cardiovascular: Negative. Gastrointestinal: Negative. Genitourinary: Negative. Musculoskeletal: Negative. Skin: Negative. Neurological: Negative. All other systems reviewed and are negative. Hematological: Negative. Endocrine: Negative. Allergic/Immunologic: Negative. OBJECTIVE Objective: Physical Exam Constitutional: Appearance: Normal appearance. She is well-developed. Cardiovascular: Rate and Rhythm: Normal rate and regular rhythm. Pulmonary: Effort: Pulmonary effort is normal. Breath sounds: Normal breath sounds. Abdominal: General: Bowel sounds are normal. There is no distension. Palpations: Abdomen is soft. Tenderness: There is no abdominal tenderness. There is no guarding or rebound. Musculoskeletal: General: No swelling. Normal range of motion. Right lower leg: No edema. Left lower leg: No edema. Neurological: Mental Status: She is alert and oriented to person, place, and time. Skin: General: Skin is warm and dry. Psychiatric: Mood and Affect: Mood normal. Behavior: Behavior normal. Vitals and nursing note reviewed. Exam conducted with a supervisor body assembly present. Vitals: There is no height or weight on file to calculate BMI. BP: 118/80 Patient's last menstrual period was 12/11/2024. Assessment/Plan ICD-10-CM 1. Second trimester ([facility]) Z34.92 2. 26 weeks gestation of ([facility]) Z3A.26 POCT urinalysis dipstick manually resulted 3. Diabetes mellitus screening Z13.1 CBC Glucose tolerance, 1 hour CBC Glucose tolerance, 1 hour 4. Well woman exam with routine gynecological exam Z01.419 Pap Smear HPV DNA probe, amplified 5. STD exposure Z20.2 SURESWAB(R) ADVANCED VAGINITIS PLUS, TMA CHLAMYDIA TRACHOMATIS (GENITO/STI) Neisseria gonorrhea DNA probe, direct Assessment/Plan Return OB: Patient presents today for a routine obstetrics appointment. Patient is currently 26w0d . Patient states she is doing well but has complaints of being tired due to current . Patient has verbalizes frequent movement. labor precautions was discussed/given and patient was instructed to perform kick counts three times a day. Orders Placed This Encounter Procedures HPV DNA probe, amplified CBC Glucose tolerance, 1 hour CHLAMYDIA TRACHOMATIS (GENITO/STI) Neisseria gonorrhea DNA probe, direct POCT urinalysis dipstick manually resulted Follow Up: Patient is to return to office in 4 week for routine OB appointment. Documented by Wilma Morse NP on behalf of: Chong Eid DO documented in this encounter Plan of Treatment DateTypeDepartmentCare Team (Latest Contact Info)Abnunvnrzyt98/29/2025 2:00 PM ESTRoutine [facility] [address] [place] [address] Robyn Beauchamp PA [address] [place] [address] NameTypePriorityAssociated DiagnosesOrder ScheduleCBCLabRoutine Diabetes mellitus screening Expected: 05/02/2025 (Approximate), Expires: 05/02/2026Glucose tolerance, 1 hour LabRoutine Diabetes mellitus screening Expected: 05/02/2025 (Approximate), Expires: 05/02/2026SURESWAB(R) ADVANCED VAGINITIS PLUS, TMAPathology and CytologyRoutine STD exposure Ordered: 05/02/2025HLAMYDIA TRACHOMATIS (GENITO/STI)LabRoutine STD exposure Ordered: 05/02/2025Neisseria gonorrhea DNA probe, directLabRoutine STD exposure Ordered: 05/02/2025Pap SmearPathology and CytologyRoutine Well woman exam with routine gynecological exam Ordered: 05/02/2025HPV DNA probe, amplifiedMicrobiologyRoutine Well woman exam with routine gynecological exam Ordered: 05/02/2025documented as of this encounter Procedures Procedure NamePriorityDate/TimeAssociated DiagnosisCommentsPOCT URINALYSIS TXONFGHDRodbnrt94/15/2025 10:40 AM EST 26 weeks gestation of ([facility]) documented in this encounter Results * POCT urinalysis dipstick manually resulted (05/02/2025 10:40 AM EST)Component ValueRef RangeTest MethodAnalysis TimePerformed AtPathologist SignatureColor, UAYellowClarity, UAClearGlucose, UANegativeNegative - 2000(110) ++++ mg/dL Bilirubin, UANegativeNegative - 4(70) +++ mg/dLKetones, UANegativeNegative - 160(16) ++++ mg/dLSpec Grav, UA1.0101 - 1.03Blood, UANegativeNegative - 50 Travis/mcLpH, UA6.05 - 9Protein, UANegativeNegative - 2000(20) ++++ mg/dL Urobilinogen, UA0.20.2 - 12 mg/dLLeukocytes, UANegativeNegative - 500+++ Lala/mcLNitrite, UANegativeNegative - PositiveSpecimen (Source)Anatomical Location / LateralityCollection Method / VolumeCollection TimeReceived Time Urine05/02/2025 10:40 AM EST Narrative Authorizing ProviderResult TypeResult StatusCorey Stanton DOPOINT OF CARE TEST ENTER/EDIT ORDERABLESFinal Result documented in this encounter Visit Diagnoses Diagnosis Second trimester ([facility]) state, incidental 26 weeks gestation of ([facility]) Diabetes mellitus screening Screening for diabetes mellitus Well woman exam with routine gynecological exam Routine gynecological examination STD exposure documented in this encounter Care Teams Team MemberRelationshipSpecialtyStart DateEnd Date Doug Rajput MD [address] [place] [address] PCP - GeneralFamily Medicine02/04/25documented as of this encounter
--- OUTSIDE RECORDS SUMMARY | 2025-05-10 09:20 | XMS_ITS | Encounter Summary ---
Author Organization [facility] Address [address] [place] [address] Care Team Providers Care Job Press Feeder Name Role Phone Doug Rajput MD Primary Care Provider [phone] Encounter Details DateTypeDepartmentCare Team (Latest Contact Info)Bjkegpramle33/15/2025External Result Encounter [facility] External Department Unsolicited Chong Eid DO [address] [facility] [address] Mirian [place]aj[place], [facility] Social History Tobacco UseTypesPacks/DayYears UsedDateSmoking Tobacco: Never Assessed Estimated Date of UrvmhfaxEuwwlhszCrl42/23/2026Based on Ultrasound, FHR- 153Sex and Gender InformationValueDate RecordedSex Assigned at BirthNot on fileLegal AraFegpns27/15/2023 6:53 PM EDTGender IdentityNot on fileSexual OrientationNot on filedocumented as of this encounter Plan of Treatment DateTypeDepartmentCare Team (Latest Contact Info)Duelvuqqrsh99/29/2025 2:00 PM ESTRoutine [facility] OBGYOliver [address] [facility] [place] [phone] Robyn Beauchamp PA [address] [facility] [address] [place], [place] [address] documented as of this encounter Procedures Procedure NamePriorityDate/TimeAssociated DiagnosisCommentsRECURRENT VAGINITIS (HTRX)Zbfdowq0305/02/2025 12:02 PM EST documented in this encounter Results * RECURRENT VAGINITIS (HTRX) (05/02/2025 12:02 PM EST)ComponentValueRef Range Test MethodAnalysis TimePerformed AtPathologist SignatureATOPOBIUM VAGINAE0 19.961 - 24.689 ppm05/03/2025 7:32 AM ESTHealthTrackRx at LabPortATOPOBIUM VAGINAENot Dwzswbux41.961 - 24.689 ppm05/03/2025 7:32 AM ESTHealthTrackRx at LabPortBVAB 2,3 (BACTERIAL VAGINOSIS ASSOCIATED BACTERIA 2, 3); MOBILUNCUS SPP 019.961 - 24.689 ppm05/03/2025 7:32 AM ESTHealthTrackRx at LabPortBVAB 2,3 (BACTERIAL VAGINOSIS ASSOCIATED BACTERIA 2, 3); MOBILUNCUS SPPNot Detected 19.961 - 24.689 ppm05/03/2025 7:32 AM ESTHealthTrackRx at LabPortCANDIDA ALBICANS, PARAPSILOSIS, JGITLYLDPB611.000 - 30.347 ppm05/03/2025 7:32 AM EST [facility] at LabPortCANDIDA ALBICANS, PARAPSILOSIS, TROPICALISNot Detected 23.000 - 30.347 ppm05/03/2025 7:32 AM ESTHealthTrackRx at LabPortCANDIDA LTSUUCXD184.000 - 31.618 ppm05/03/2025 7:32 AM ESTHealthTrackRx at LabPort LATHA GLABRATANot Kmycezta08.000 - 31.618 ppm05/03/2025 7:32 AM EST [facility] at LabPortCANDIDA HVRQYJ342.000 - 30.873 ppm05/03/2025 7:32 AM ESTHealthTrackRx at LabPortCANDIDA KRUSEINot Yxrzsema84.000 - 30.873 ppm 05/03/2025 7:32 AM ESTHealthTrackRx at LabPortCHLAMYDIA EGECXNXSQRW404.000 - 31.586 ppm05/03/2025 7:32 AM ESTHealthTrackRx at LabPortCHLAMYDIA TRACHOMATIS Not Gaqcbcib27.000 - 31.586 ppm05/03/2025 7:32 AM EST[facility] GARDNERELLA AQBPCAHXC955.961 - 24.689 ppm05/03/2025 7:32 AM ESTHealthTrackRx at LabPortGARDNERELLA VAGINALISNot Rxhjuwfv10.961 - 24.689 ppm05/03/2025 7:32 AM ESTHealthTrackRx at LabPortMEGASPHAERA (TYPES 1, 2)019.961 - 24.689 ppm 05/03/2025 7:32 AM ESTHealthTrackRx at LabPortMEGASPHAERA (TYPES 1, 2)Not Peemwedu72.961 - 24.689 ppm05/03/2025 7:32 AM EST[facility] NEISSERIA NQTSPSHCVCC849.000 - 32.587 ppm05/03/2025 7:32 AM ESTHealthTrackRx at LabPortNEISSERIA GONORRHOEAENot Omsuquro02.000 - 32.587 ppm05/03/2025 7:32 AM ESTHealthTrackRx at LabPortTRICHOMONAS YPDYVVPVP666.000 - 31.995 ppm 05/03/2025 7:32 AM ESTHealthTrackRx at LabPortTRICHOMONAS VAGINALISNot Xgwgjscq99.000 - 31.995 ppm05/03/2025 7:32 AM EST[facility] MYCOPLASMA PBCEGQUUYE156.961 - 24.689 ppm05/03/2025 7:32 AM ESTHealthTrackRx at LabPortMYCOPLASMA GENITALIUMNot Sqlylieg62.961 - 24.689 ppm05/03/2025 7:32 AM ESTHealthTrackRx at LabPortSpecimen (Source)Anatomical Location / LateralityCollection Method / VolumeCollection TimeReceived TimeTissue 05/02/2025 12:02 PM EST05/03/2025 1:31 AM EST Narrative Authorizing ProviderResult TypeResult StatusCorey Stanton DOLAB BLOOD ORDERABLES Final ResultPerforming OrganizationAddressCity/State/ZIP CodePhone Number [facility] [address] [address] documented in this encounter Visit Diagnoses Not on filedocumented in this encounter Care Teams Team MemberRelationshipSpecialtyStart DateEnd Date Doug Rajput MD [address] [facility] [place] [address] PCP - GeneralFamily Medicine02/04/25documented as of this encounter
--- OUTSIDE RECORDS SUMMARY | 2025-05-10 09:20 | XMS_ITS | Encounter Summary ---
Author Organization [facility] Address [address] [place] [address] Care Team Providers Care Urban Design Consultant Name Role Phone Doug Rajput MD Primary Care Provider [phone] Encounter Details DateTypeDepartmentCare Team (Latest Contact Info)Afrxlbkthai55/22/2025Telephone [facility] PAYNE [address] [employer] [place] [address] Iram Beard MA [address] [place] [address] Social History Tobacco UseTypesPacks/DayYears UsedDateSmoking Tobacco: Never Assessed Estimated Date of RsseuvktPffhpemzNsz97/23/2026Based on Ultrasound, FHR- 153Sex and Gender InformationValueDate RecordedSex Assigned at BirthNot on fileLegal DioOecxbs55/15/2023 6:53 PM EDTGender IdentityNot on fileSexual OrientationNot on filedocumented as of this encounter Miscellaneous Notes * Telephone Encounter - Iram Beard MA - 05/09/2025 2:43 PM EST Pt notified of 1-hr results 153 and a 3-hr [facility]obtained. Pt stated she will try to get it done this week. documented in this encounter Plan of Treatment DateTypeDepartmentCare Team (Latest Contact Info)Rjogmjmxqeo97/29/2025 2:00 PM ESTRoutine [facility] PAYNE [address] [place] [address] Robyn Beauchamp PA [address] [place] [address] [place] [address] NameTypePriorityAssociated DiagnosesOrder ScheduleGlucose tolerance, 3 hoursLab Routine Elevated glucose tolerance test Expected: 05/09/2025 (Approximate), Expires: 05/09/2026documented as of this encounter Visit Diagnoses Diagnosis Elevated glucose tolerance test Impaired glucose tolerance test documented in this encounter Care Teams Team MemberRelationshipSpecialtyStart DateEnd Date Doug Rajput MD [address] [facility] [place] [address] PCP - GeneralFamily Medicine02/04/25documented as of this encounter
--- OUTSIDE RECORDS SUMMARY | 2025-05-10 09:20 | XMS_ITS | Clinical Summary ---
Author Organization [facility] Address [address] [place] [address] Care Team Providers Care Data Processing Mechanic Name Role Phone Doug Rajput MD Primary [...] for nausea. 30 tablet 5Active Encounters DateTypeDepartmentCare UberMniwrfeyflb98/23/2025Orders Only [facility] PA[facility] [address] [place] [address] Chelsy Horta LPN 05/09/2025Telephone [facility] [address] [place] [phone] Iram Beard MA 05/04/2025linisync Result Encounter NOMS External Department Unsolicited Chong Eid DO 05/02/2025 10:10 AM ESTRoutine [facility] [address] [place] [address] Chong Eid DO Second trimester ([facility]); 26 weeks gestation of ([facility]); Diabetes mellitus screening; Well woman exam with routine gynecological exam; STD wxncsxaq88/15/2025Clinisync Result Encounter NOMS External Department Unsolicited Chong Eid, DO 05/02/2025External Result Encounter NOMS External Department Unsolicited Chong Eid, DO 05/02/2025amboo [place] [address] Chong Eid, DO 03/30/2025 2:30 PM [place] [address] Robyn Beauchamp PA Second trimester ([facility]); 21 weeks gestation of ([facility])03/30/2025 1:30 PM ESTAncillary Procedure [facility]ule[facility] [address] Screening, , for anatomic survey ([facility])5Clinisync Result Encounter NOMS External Department Unsolicited Chong Eid, DO 03/02/2025 11:10 AM EDTRout[place] [address] Chong Eid, DO Second trimester ([facility]); 17 weeks gestation of ([facility]); Screening, , for anatomic survey ([facility])03/02/2025amboo [place] [address] Chong Eid, DO 5Clinisync Result Encounter NOMS External Department Unsolicited Robyn Beauchamp PA from Last 3 Months Family History Medical HistoryRelationNameCommentsHypertensionMotherRelationNameStatusComments Mother Social History Tobacco UseTypesPacks/DayYears UsedDateSmoking Tobacco: Never Assessed Estimated Date of FricspeoOimwiwpcKtj54/23/2026Based on Ultrasound, FHR- 153Sex and Gender InformationValueDate RecordedSex Assigned at BirthNot on fileLegal PqyKzzrup62/15/2023 6:53 PM EDTGender IdentityNot on fileSexual OrientationNot on file Last Filed Vital Signs Vital SignReadingTime TakenCommentsBlood Szsmzmgy583/80107/03/2024 10:32 AM EST Pulse--Temperature--Respiratory Rate--Oxygen Saturation--Inhaled Oxygen Concentration--Bklytf26.5 kg (126 lb 12 oz)05/02/2025 10:32 AM ESTHeight--Body Mass Index-- Plan of Treatment DateTypeDepartmentCare Team (Latest Contact Info)Ndzcqbulrdk68/29/2025 2:00 PM ESTRoutine [facility] [address] [place] [address] Robyn Beauchamp PA [address] [facility] [address] [place], [place] [id number] Procedures Procedure NamePriorityDate/TimeAssociated DiagnosisCommentsGLUCOSE 1 HOURRoutine 05/04/2025 12:27 PM EST ALL CBC WITH AUTO SXJSTfkswrh50/17/2025 12:27 PM EST RECURRENT VAGINITIS (HTRX)Fbiktgd7205/02/2025 12:02 PM EST POCT URINALYSIS WTPYEIJZLdsansr70/15/2025 10:40 AM EST 26 weeks gestation of ([facility]) IGP,APTIMA HPV,AGE ZKRVKcblsbf86/15/2025 10:22 AM EST PAP TEST, JSGPOFSSSiysvsq88/15/2025 12:00 AM ESTPOCT URINALYSIS DIPSTICKRoutine 03/30/2025 2:57 PM EST 21 weeks gestation of ([facility]) US OB 14+ WEEKS ANATOMY ZCTKBozeeot91/12/2025 2:12 PM EST Screening, , for anatomic survey ([facility]) AFP, SERUM, OPEN SPINA EZNEXCZjfnejt83/05/2025 9:06 AM EST POCT URINALYSIS GIGFWVFCMivfkfh16/15/2025 11:44 AM EDT 17 weeks gestation of ([facility]) HBSAG DXUZLABhnprvh14/29/2025 9:30 AM EDT RAPID PLASMA REAGIN, MTTEFWzdtykn71/29/2025 9:30 AM EDT HCV ANTIBODY RFX TO QUANT ECWDylokkm44/29/2025 9:30 AM EDT ALL RUBELLA IGG DBTwhyocx00/29/2025 9:30 AM EDT HIV AB/P24 AG WITH XYNOXWJzispmw60/29/2025 9:30 AM EDT ALL TYPE AND EOZPKWZnjyhzb19/29/2025 9:30 AM EDT MLR HEMOGLOBIN B1CEmryupm86/29/2025 9:30 AM EDT ALL CBC WITH AUTO WFZQObezvvi07/29/2025 9:30 AM EDT BOX PWUJOyvezye44/29/2025 9:30 AM EDT CANNABINOID CONF, MS, HPYnmnxrs07/29/2025 9:17 AM EDT TBH DRUG SCREEN RAPID (URINE)Cmtjzmi3302/14/2025 9:17 AM EDT from Last 3 Months Results * (ABNORMAL) GLUCOSE 1 HOUR (05/04/2025 12:27 PM EST)ComponentValueRef RangeTest MethodAnalysis TimePerformed AtPathologist SignatureGLUCOSE 1 OMGO079(H)<130 mg/dLTBHSpecimen (Source)Anatomical Location / LateralityCollection Method / VolumeCollection TimeReceived Time05/04/2025 12:27 PM EST05/04/2025 12:51 PM EST Narrative CLINISYNC - 05/04/2025 2:02 PM EST Authorizing ProviderResult TypeResult StatusCorey Stanton HUTSON BLOOD ORDERABLES Final ResultPerforming OrganizationAddressCity/State/ZIP CodePhone Number HENRY TB * (ABNORMAL) ALL CBC WITH AUTO DIFF (05/04/2025 12:27 PM EST) Only the most recent of2 resultswithin the time period is included. ComponentValueRef RangeTest MethodAnalysis TimePerformed AtPathologist Signature TBH WBC9.44.0 - 11.0 10 3/uLTBHTBH RBC3.63(L)4.20 - 5.40 10 6/uLTBHTBH HGB11.3 (L)12.0 - 16.0 g/dLTBHTBH HCT33.8(L)36.0 - 48.0 %TBHTBH MCV93.181.0 - 99.0 fLTBH TBH MCH31.126.7 - 34.0 pgTBHTBH MCHC33.429.9 - 35.2 g/dLTBHTBH RDW11.811.0 - 15.0 %TBHTBH TCW848809 - 450 10 3/uLTBHTBH MPV9.99.5 - 13.5 fLTBHNEUTROPHILS PERCENT AUTO72.243.0 - 75.0 %TBHLYMPHOCYTES PERCENT AUTO17.4(L)20.5 - 60.0 %TBH MONOCYTES PERCENT AUTO7.91.7 - 12.0 %TBHTBH EO %1.20.9 - 7.0 %TBHBASOPHILS PERCENT AUTO0.30.2 - 2.0 %TBHIMMATURE GRANULOCYTES PCT AUTO1.0(H)0.0 - 0.5 %TBH NEUTROPHILS ABSOLUTE AUTO6.8(H)1.4 - 6.5 10 3/uLTBHLYMPHOCYTES ABSOLUTE AUTO1.6 1.2 - 3.8 10 3/uLTBHMONOCYTES ABSOLUTE AUTO0.70.3 - 0.8 10 3/uLTBHTBH EO #0.10.0 - 0.7 10 3/uLTBHBASOPHILS ABSOLUTE AUTO0.00.0 - 0.1 10 3/uLTBHIMMATURE GRANULOCYTES ABS AUTO0.09(H)0.00 - 0.03 10 3/uLTBHSpecimen (Source)Anatomical Location / LateralityCollection Method / VolumeCollection TimeReceived Time 05/04/2025 12:27 PM EST05/04/2025 12:51 PM EST Narrative CLINISYNC - 05/04/2025 1:06 PM EST Authorizing ProviderResult TypeResult StatusCorey Stanton DOCLINISYNCFinal Result Performing OrganizationAddressCity/State/ZIP CodePhone Number [facility]RY TBH * RECURRENT VAGINITIS (HTRX) (05/02/2025 12:02 PM EST)ComponentValueRef Range Test MethodAnalysis TimePerformed AtPathologist SignatureATOPOBIUM VAGINAE0 19.961 - 24.689 ppm05/03/2025 7:32 AM ESTHealthTrackRx at LabPortATOPOBIUM VAGINAENot Fowbdqjl57.961 - 24.689 ppm05/03/2025 7:32 AM ESTHealthTrackRx at LabPortBVAB 2,3 (BACTERIAL VAGINOSIS ASSOCIATED BACTERIA 2, 3); MOBILUNCUS SPP 019.961 - 24.689 ppm05/03/2025 7:32 AM ESTHealthTrackRx at LabPortBVAB 2,3 (BACTERIAL VAGINOSIS ASSOCIATED BACTERIA 2, 3); MOBILUNCUS SPPNot Detected 19.961 - 24.689 ppm05/03/2025 7:32 AM ESTHealthTrackRx at LabPortCANDIDA ALBICANS, PARAPSILOSIS, DVODJIIRMW697.000 - 30.347 ppm05/03/2025 7:32 AM EST [facility] at LabPortCANDIDA ALBICANS, PARAPSILOSIS, TROPICALISNot Detected 23.000 - 30.347 ppm05/03/2025 7:32 AM ESTHealthTrackRx at LabPortCANDIDA BIVRGUKB706.000 - 31.618 ppm05/03/2025 7:32 AM ESTHealthTrackRx at LabPort LATHA GLABRATANot Oeyorqze11.000 - 31.618 ppm05/03/2025 7:32 AM EST [facility] at LabPortCANDIDA ULIFUL884.000 - 30.873 ppm05/03/2025 7:32 AM ESTHealthTrackRx at LabPortCANDIDA KRUSEINot Txohpakw85.000 - 30.873 ppm 05/03/2025 7:32 AM ESTHealthTrackRx at LabPortCHLAMYDIA AMQKSRWHSBD400.000 - 31.586 ppm05/03/2025 7:32 AM ESTHealthTrackRx at LabPortCHLAMYDIA TRACHOMATIS Not Eihxkigw04.000 - 31.586 ppm05/03/2025 7:32 AM ESTHealthTrackRx at LabPort GARDNERELLA PVWKKLZLS160.961 - 24.689 ppm05/03/2025 7:32 AM ESTHealthTrackRx at LabPortGARDNERELLA VAGINALISNot Uamquelz46.961 - 24.689 ppm05/03/2025 7:32 AM ESTHealthTrackRx at LabPortMEGASPHAERA (TYPES 1, 2)019.961 - 24.689 ppm 05/03/2025 7:32 AM ESTHealthTrackRx at LabPortMEGASPHAERA (TYPES 1, 2)Not Mspxyclh21.961 - 24.689 ppm05/03/2025 7:32 AM ESTHealthTrackRx at LabPort NEISSERIA SHGOWAZUWXZ254.000 - 32.587 ppm05/03/2025 7:32 AM ESTHealthTrackRx at LabPortNEISSERIA GONORRHOEAENot Bmtxlpzl28.000 - 32.587 ppm05/03/2025 7:32 AM ESTHealthTrackRx at LabPortTRICHOMONAS FXCJIPLRF641.000 - 31.995 ppm 05/03/2025 7:32 AM ESTHealthTrackRx at LabPortTRICHOMONAS VAGINALISNot Ifahcffw77.000 - 31.995 ppm05/03/2025 7:32 AM ESTHealthTrackRx at [facility]Port MYCOPLASMA BLPSRASWAU705.961 - 24.689 ppm05/03/2025 7:32 AM ESTHealthTrackRx at LabPortMYCOPLASMA GENITALIUMNot Moffkpbc31.961 - 24.689 ppm05/03/2025 7:32 AM ESTHealthTrackRx at LabPortSpecimen (Source)Anatomical Location / LateralityCollection Method / VolumeCollection TimeReceived TimeTissue 05/02/2025 12:02 PM EST05/03/2025 1:31 AM EST Narrative Authorizing ProviderResult TypeResult StatusCorey Stanton DOLAB BLOOD ORDERABLES Final ResultPerforming OrganizationAddressCity/State/ZIP CodePhone Number [facility] [address] [address] * POCT urinalysis dipstick manually resulted (05/02/2025 10:40 AM EST) Only the most recent of3 resultswithin the time period is included. ComponentValueRef [...] Location / LateralityCollection Method / VolumeCollection TimeReceived WepqNlbnt63/15/2025 10:40 AM EST Narrative Authorizing ProviderResult TypeResult [...] at: 01 =G ?[facility] ?? [address] [place], [place] ??[address] ?? Stacey Huang MD, IGP, APTIMA HPV, RFX 16/18,45Note.TBHComment: ?? TESTS ? RESULT ??FLAG ??UNITS ?REF RANGE ??LAB DIAGNOSIS: ?02 ?? NEGATIVE FOR INTRAEPITHELIAL LESION OR MALIGNANCY. Specimen adequacy: ?02 ?? Satisfactory for evaluation. ??No endocervical component is identified. ?? An endocervical component is not commonly seen in the patient. Performed by: ? 02 ?? Lul Soares Amusement Park Ride Mechanic (ASCP) . ? 02 Note: ? Note [...] pap test was interpreted ?? using the MunchAway(R) LiveExercise(TM) Cervical Algorithm whole ?? slide imaging system. HPV Genotype Reflex ?? Note ?02 ?? Criteria not met, HPV Genotype not performed. ?FLAG LEGEND: ?L-Low Normal,H-High Normal,LL-Alert Low,HH-Alert High <-Panic Low,>-Panic High,A-Abnormal,AA-Critical Abnormal Performed at: 02 WB ?[facility] ?? [address] [place], [place] ??[phone] ?? Stacey Huang MD, HPV APTIMANegativeNegativeTBHComment: This nucleic acid amplification test detects fourteen high- risk HPV types (16,18,31,33,35,39,45,51,52,56,58,59,66,68) without differentiation. Performed at: ??=G - [facility] [address] ??[id number] Construction Project Coordinator: Stacey Huang MD, Phone: ??[phone] Performed at: ?? - [facility] ??[id number] Construction Project Coordinator: Stacey Huang MD, Phone: ??[phone] Specimen (Source)Anatomical Location / LateralityCollection Method / Volume Collection TimeReceived Time05/02/2025 10:22 AM EST05/02/2025 12:52 PM EST Narrative CLINISYNC - 05/04/2025 10:08 AM EST SPATULA-ALONE VAGINA Authorizing ProviderResult TypeResult StatusCorey Stanton DOLAB BLOOD ORDERABLES Final ResultPerforming OrganizationAddressCity/State/[facility] CodePhone Number CLINISYNC TBH * PAP TEST, EXTERNAL (05/02/2025 12:00 AM EST) Narrative Authorizing ProviderResult TypeResult StatusCorey Stanton DOLAB CYTOLOGY ORDERABLESFinal ResultPerforming OrganizationAddressCity/State/ZIP CodePhone Number EXTERNAL LAB * US OB 14+ weeks anatomy scan (03/30/2025 2:12 PM EST)Anatomical Region LateralityModalityBodyUltrasoundSpecimen (Source)Anatomical Location / LateralityCollection Method / VolumeCollection TimeReceived Time03/30/2025 8:37 PM EST Impressions 03/31/2025 7:14 AM EST Single, live intrauterine , current sonographic age of 21 weeks and 1 days, with an estimated date of delivery of August 09, 2025. TRANSCRIBED BY: ? ELECTRONICALLY SIGNED BY: Zach hCristianson MD Narrative 03/31/2025 7:14 AM EST FINDINGS: [...] Christianson MD Authorizing ProviderResult TypeResult StatusCorey Stanton RODRIGUES OB US PROCEDURES Final Result * AFP, SERUM, OPEN SPINA BIFIDA (03/23/2025 9:06 AM EST)ComponentValueRef Range Test MethodAnalysis TimePerformed AtPathologist SignatureRESULTSReport.TBHTEST RESULTS:*Screen Negative*.TBHGEST. AGE ON COLLECTION DATE20.3. weeksTBHGESTAT. AGE BASED ONUltrasound.TBHComment: ?17.3 on 03/02/2025 Recalculations are not recommended when gestational dating by LMP and ultrasound are within 10 days. MATERNAL AGE AT EDD31.1. yrTBHRACECaucasian.EMHXHEBPI522. lbsTBHINSULIN DEP DIABETESNo.TBHMULTIPLE GESTATIONNo.TBHAFP ANUWX200.9. ng/mLTBHAFP MOM1.50.TBH OSBR RISK 1 YB1893.TBHINTERPRETATIONComment.TBHComment: Interpretation: Screen Negative This result is screen [...] Customer Services to discuss available options. ??The [employer] recommends amniocentesis be offered to women age 35 and older. COMMENT:Comment.TBHComment: Shaniqua Hairston, Ph.D., [facility] Director References: Available Upon Request. Multiples Of Median Cutoffs ?For AFP Elevations Min ?? 2.5 ? Black ?2.8 IDD ? 2.0 ? Twins ?4.5 ?Abbreviation Definitions IDD - Insulin Dep Diabetes OSBR - Open Spina Bifida Risk For further inquiries contact [facility] at [phone]. This test was developed and its performance characteristics determined by [employer] ([employer]). It has not been cleared or approved by the Food and Drug Administration. Performed at: ??TG - [facility] [place], [place] ??[id number] Construction Project Coordinator: Alcon Anderson [facility], Phone: ??[phone] Specimen (Source)Anatomical Location / LateralityCollection Method / Volume Collection TimeReceived Time03/23/2025 9:06 AM EST03/23/2025 9:07 AM EST Narrative CLINISYNC - 03/25/2025 1:07 AM EST N N ULTRASOUND [id number] 2 17 N 1 Y 107 N N N N N White/ Authorizing ProviderResult TypeResult StatusCorey Stanton DOLAB BLOOD ORDERABLES Final ResultPerforming OrganizationAddressCity/State/ZIP CodePhone Number CLINISYNC TB * BOX TEST (02/14/2025 9:30 AM EDT)ComponentValueRef RangeTest MethodAnalysis TimePerformed AtPathologist SignatureBOX TEST SENT XAQJKOTFESEZ0PMZVWIBVTEF3 02/14/25TBHSpecimen (Source)Anatomical Location / LateralityCollection Method / VolumeCollection TimeReceived Time02/14/2025 9:30 AM EDT02/14/2025 9:37 AM EDT Narrative CLINISYNC - 02/14/2025 10:13 AM EDT Authorizing ProviderResult TypeResult StatusAmy Ntio PALAB BLOOD ORDERABLES Final ResultPerforming OrganizationAddressCity/State/ZIP CodePhone Number [facility] * HBSAG SCREEN (02/14/2025 9:30 AM EDT)ComponentValueRef RangeTest Method Analysis TimePerformed AtPathologist SignatureHBSAG SCREENNegativeNegativeTBH Comment: Performed at: ??[address] ??[id number] Construction Project Coordinator: Linus Pollard PhD, Phone: ??[phone] Specimen (Source)Anatomical Location / LateralityCollection Method / Volume Collection TimeReceived Time02/14/2025 9:30 AM EDT02/14/2025 9:37 AM EDT Narrative CLINISYPA - 02/15/2025 1:08 PM EDT Authorizing ProviderResult TypeResult StatusCoreshravan PATHAKAB BLOOD ORDERABLES Final ResultPerforming OrganizationAddressCity/State/ZIP CodePhone Number [facility] TB * RAPID PLASMA REAGIN, QUANT (02/14/2025 9:30 [...] utilized, such as Treponema pallidum (Syphilis) Screening Caroline (125671) or Rapid Plasma Reagin (RPR) Test With Reflex to Quantitative RPR and Confirmatory Treponema pallidum Antibodies (111101). Performed at: ??[address] ??[id number] Construction Project Coordinator: Linus Pollard PhD, Phone: ??[phone] Specimen (Source)Anatomical Location / LateralityCollection Method / Volume Collection TimeReceived Time02/14/2025 9:30 AM EDT02/14/2025 9:37 AM EDT Narrative [facility] - 02/15/2025 1:08 PM EDT Authorizing ProviderResult TypeResult StatusCorey Stanton DOLAB BLOOD ORDERABLES Final ResultPerforming OrganizationAddressty/State/ZIP CodePhone Number [facility] * HIV AB/P24 AG WITH REFLEX (02/14/2025 9:30 AM EDT)ComponentValueRef RangeTest MethodAnalysis TimePerformed AtPathologist SignatureHIV AB/P24 AG SCREENNon ReactiveNon ReactiveTBHComment: HIV-1/HIV-2 antibodies and HIV-1 p24 antigen were NOT detected. There is no laboratory evidence of HIV infection. HIV Negative Performed at: ??[facility] [address] ??[id number] Construction Project Coordinator: Linus Pollard PhD, Phone: ??[phone] Specimen (Source)Anatomical Location / LateralityCollection Method / Volume Collection TimeReceived Time02/14/2025 9:30 AM EDT02/14/2025 9:37 AM EDT Narrative [facility] - 02/15/2025 5:08 AM EDT Authorizing ProviderResult TypeResult StatusCorey Stanton DOLAB BLOOD ORDERABLES Final ResultPerforming OrganizationAddressty/State/ZIP CodePhone Number [facility] * HCV ANTIBODY RFX TO QUANT PCR (02/14/2025 9:30 AM EDT)ComponentValueRef Range Test MethodAnalysis TimePerformed AtPathologist SignatureHCV ABNon ReactiveNon ReactiveTBHINTERPRETATION:Comment.TBHComment: Not infected with HCV unless early or acute infection is suspected (which may be delayed in an immunocompromised individual), or other evidence exists to indicate HCV infection. Performed at: ??[facility] [address] ??[id number] Construction Project Coordinator: Linus Pollard PhD, Phone: ??[phone] Specimen (Source)Anatomical Location / LateralityCollection Method / Volume Collection TimeReceived Time02/14/2025 9:30 AM EDT02/14/2025 9:37 AM EDT Narrative [facility] 02/15/2025 7:07 AM EDT Authorizing ProviderResult TypeResult StatusCorey Stanton DOLAB BLOOD ORDERABLES Final ResultPerforming OrganizationAddSharon Regional Medical Center/State/ZIP CodePhone [facility] * MLR HEMOGLOBIN A1C (02/14/2025 9:30 AM EDT)ComponentValueRef RangeTest Method Analysis TimePerformed AtPathologist SignatureGLYCOHEMOGLOBIN A1C5.14.5 - 6.2 %TBHComment: ADA RECOMMENDED LIMIT 4.0 - 6.0 ADA THERAPEUTIC TARGET < 7.0 ACTION SUGGESTED > 7.0 ESTIMATED AVERAGE ISWCHID680ni/dLTBHSpecimen (Source)Anatomical Location / LateralityCollection Method / VolumeCollection TimeReceived Time02/14/2025 9:30 AM EDT02/14/2025 9:37 AM EDT [facility] - 02/14/2025 10:36 AM EDT Authorizing ProviderResult TypeResult StatusCorey Stanton DOCLINISYNCFinal Result Performing OrganizationAddSt. Mary Medical Centerty/State/ZIP CodePhone Number [facility] * ALL TYPE AND SCREEN (02/14/2025 9:30 AM EDT)ComponentValueRef RangeTest Method Analysis TimePerformed AtPathologist SignatureBLOOD TYPEO PositiveTBHANTIBODY SCREENNEGATIVETBHSpecimen (Source)Anatomical Location / LateralityCollection Method / VolumeCollection TimeReceived Time02/14/2025 9:30 AM EDT02/14/2025 9:37 AM EDT [facility] - 02/14/2025 11:51 AM EDT [facility] , ?? Authorizing ProviderResult TypeResult StatusCorey Stanton DOCLINISYNCFinal Result Performing OrganizationAddSharon Regional Medical Center/State/ZIP CodePhone Number [facility] * ALL RUBELLA IGG AB (02/14/2025 9:30 AM EDT)ComponentValueRef RangeTest Method Analysis TimePerformed AtPathologist SignatureRUBELLA ANTIBODIES, IGG5.74 Immune >0.99 indexTBHComment: Non-immune <0.90 ?Equivocal ??0.90 - 0.99 Immune >0.99 Performed at: ??CB - [facility] [address] ??[id number] Construction Project Coordinator: Linus Pollard PhD, Phone: ??[phone] Specimen (Source)Anatomical Location / LateralityCollection Method / [...] 9:17 AM EDT02/14/2025 9:38 AM EDT Narrative CLINISYNC - 02/14/2025 10:27 AM EDT Authorizing ProviderResult TypeResult StatusCorey Stanton DOCLINISYNCFinal Result Performing OrganizationAddressCity/State/ZIP CodePhone Number CLINISYPA TBH * (ABNORMAL) CANNABINOID CONF, MS, UR (02/14/2025 9:17 AM EDT)ComponentValueRef RangeTest MethodAnalysis TimePerformed AtPathologist SignatureCANNABINOID Positive(A).TBHCARBOXY THC CONF, MS, DO34Tyzhmq=62 ng/mLTBHComment: Performed at: ??UI - [facility] [address] ??[id number] Construction Project Coordinator: Leodan Martínez PhD, Phone: ??[phone] Specimen (Source)Anatomical Location / LateralityCollection Method / Volume Collection TimeReceived Time02/14/2025 9:17 AM EDT02/14/2025 10:29 AM EDT Narrative CLINISYNC - 02/17/2025 5:09 PM EDT Authorizing ProviderResult TypeResult StatusCorey Stanton DOLAB BLOOD ORDERABLES Final ResultPerforming OrganizationAddressCity/State/ZIP CodePhone Number CLINISYPA TB from Last 3 Months Insurance Care Teams Team MemberRelationshipSpecialtyStart DateEnd Doug Rajput MD [address] [place] [address] [facility]
--- OUTSIDE RECORDS SUMMARY | 2025-05-10 09:20 | XMS_ITS | Encounter Summary ---
Author Organization [facility] Address [address] [place] [address] Care Team Providers Care State Inspector Name Role Phone Doug Rajput MD Primary Care Provider [phone] Encounter Details DateTypeDepartmentCare Team (Latest Contact Info)Ynoktsnyvmw93/15/2025amboo flowsheet NOMVinay PAYNE [address] [facility] [address] Chong Eid DO [address] [facility] [address] Mirian Najera, [facility]11 Social History Tobacco UseTypesPacks/DayYears UsedDateSmoking Tobacco: Never Assessed Estimated Date of CrgjquerVbvvyfgsQti18/23/2026Based on Ultrasound, FHR- 153Sex and Gender InformationValueDate RecordedSex Assigned at BirthNot on fileLegal NoyKhrsfy85/15/2023 6:53 PM EDTGender IdentityNot on fileSexual OrientationNot on filedocumented as of this encounter Plan of Treatment DateTypeDepartmentCare Team (Latest Contact Info)Wnlyjpbxxet00/29/2025 2:00 PM ESTRoutine [facility] Reinaldo PAYNE [address] [facility] [address] Robyn Beauchamp PA [address] [facility] [place] [address] documented as of this encounter Visit Diagnoses Not on filedocumented in this encounter Care Teams Team MemberRelationshipSpecialtyStart DateEnd Date Doug Rajput MD [address] [place] [address] PCP - GeneralFamily Medicine02/04/25documented as of this encounter
--- OUTSIDE RECORDS SUMMARY | 2025-05-10 09:20 | XMS_ITS | Encounter Summary ---
Author Organization [facility] Address [address] [place] [address] Care Team Providers Care Fire Assistant Name Role Phone Doug Rajput MD Primary Care Provider [phone] Encounter Details DateTypeDepartmentCare Team (Latest Contact Info)Zdckkseejyx15/17/2025linisync Result Encounter [facility] External Department Unsolicited Chong Eid DO [address] [facility] [address] Mirian Najera, [facility]11 Social History Tobacco UseTypesPacks/DayYears UsedDateSmoking Tobacco: Never Assessed Estimated Date of PpkhfmobMwltvmhsBxp68/23/2026Based on Ultrasound, FHR- 153Sex and Gender InformationValueDate RecordedSex Assigned at BirthNot on fileLegal YjrCjfwui34/15/2023 6:53 PM EDTGender IdentityNot on fileSexual OrientationNot on filedocumented as of this encounter Plan of Treatment DateTypeDepartbeaumont hospitalCare Team (Latest Contact Info)Nxdrgdjvvkh36/29/2025 2:00 PM ESTRoutine [facility] OBGYN [address] [place] [address] Robyn Beauchamp PA [address] [facility] [address] [place], [place] [address] documented as of this encounter Procedures Procedure NamePriorityDate/TimeAssociated DiagnosisCommentsGLUCOSE 1 HOURRoutine 05/04/2025 12:27 PM EST ALL CBC WITH AUTO MWOJZjzewed98/17/2025 12:27 PM EST documented in this encounter Results * (ABNORMAL) GLUCOSE 1 HOUR (05/04/2025 12:27 PM EST)ComponentValueRef RangeTest MethodAnalysis TimePerformed AtPathologist SignatureGLUCOSE 1 XMEL113(H)<130 mg/dLTBHSpecimen (Source)Anatomical Location / LateralityCollection Method / VolumeCollection TimeReceived Time05/04/2025 12:27 PM EST05/04/2025 12:51 PM EST Narrative [facility] - 05/04/2025 2:02 PM EST Authorizing ProviderResult TypeResult StatusCorey Stanton DOLAB BLOOD ORDERABLES Final ResultPerforming OrganizationAddressCity/State/ZIP CodePhone Number [facility] * (ABNORMAL) ALL CBC WITH AUTO DIFF (05/04/2025 12:27 PM EST)ComponentValueRef RangeTest MethodAnalysis TimePerformed AtPathologist SignatureTBH WBC9.44.0 - 11.0 10 3/uLTBHTBH RBC3.63(L)4.20 - 5.40 10 6/uLTBHTBH HGB11.3(L)12.0 - 16.0 g/dLTBHTBH HCT33.8(L)36.0 - 48.0 %TBHTBH MCV93.181.0 - 99.0 fLTBHTBH MCH31.1 26.7 - 34.0 pgTBHTBH MCHC33.429.9 - 35.2 g/dLTBHTBH RDW11.811.0 - 15.0 %TBHTBH ZVS572976 - 450 10 3/uLTBHTBH MPV9.99.5 - 13.5 fLTBHNEUTROPHILS PERCENT AUTO 72.243.0 - 75.0 %TBHLYMPHOCYTES PERCENT AUTO17.4(L)20.5 - 60.0 %TBHMONOCYTES PERCENT AUTO7.91.7 - 12.0 %TBHTBH EO %1.20.9 - 7.0 %TBHBASOPHILS PERCENT AUTO 0.30.2 - 2.0 %TBHIMMATURE GRANULOCYTES PCT AUTO1.0(H)0.0 - 0.5 %TBHNEUTROPHILS ABSOLUTE AUTO6.8(H)1.4 - 6.5 10 3/uLTBHLYMPHOCYTES ABSOLUTE AUTO1.61.2 - 3.8 10 3/uLTBHMONOCYTES ABSOLUTE AUTO0.70.3 - 0.8 10 3/uLTBHTBH EO #0.10.0 - 0.7 10 3/uLTBHBASOPHILS ABSOLUTE AUTO0.00.0 - 0.1 10 3/uLTBHIMMATURE GRANULOCYTES ABS AUTO0.09(H)0.00 - 0.03 10 3/uLTBHSpecimen (Source)Anatomical Location / LateralityCollection Method / VolumeCollection TimeReceived Time05/04/2025 12:27 PM EST05/04/2025 12:51 PM EST Narrative [facility] - 05/04/2025 1:06 PM EST Authorizing ProviderResult TypeResult StatusCorey Stanton DOCLINISYNCFinal Result Performing OrganizationAddressCity/State/ZIP CodePhone Number [facility] documented in this encounter Visit Diagnoses Not on filedocumented in this encounter Care Teams Team MemberRelationshipSpecialtyStart DateEnd Date Doug Rajput MD [address] [place] [phone] PCP - GeneralFamily Medicine02/04/25documented as of this encounter
--- OUTSIDE RECORDS SUMMARY | 2025-05-10 09:20 | XMS_ITS | Encounter Summary ---
Author Organization [facility] Address [address] [place] [address] Care Team Providers Care Folder Operator Name Role Phone Doug Rajput MD Primary Care Provider [phone] Encounter Details DateTypeDepartmentCare Team (Latest Contact Info)Fxjuwpxjpvc54/15/2025linisync Result Encounter [facility] External Department Unsolicited Chong Eid DO [address] [facility] [address] Mirian Najera, [facility]11 Social History Tobacco UseTypesPacks/DayYears UsedDateSmoking Tobacco: Never Assessed Estimated Date of EevmsbexBmhdgvfaEhw16/23/2026Based on Ultrasound, FHR- 153Sex and Gender InformationValueDate RecordedSex Assigned at BirthNot on fileLegal LchUtwjoe45/15/2023 6:53 PM EDTGender IdentityNot on fileSexual OrientationNot on filedocumented as of this encounter Plan of Treatment DateTypeDepartmentCare Team (Latest Contact Info)Tnobqqnugab61/29/2025 2:00 PM ESTRoutine [facility]YN [address] [place] [address] Robyn Beauchamp PA [address] [facility] [address] [place], [facility]11 documented as of this encounter Procedures Procedure NamePriorityDate/TimeAssociated DiagnosisCommentsIGP,APTIMA HPV,AGE MPPZCkpdfjg16/15/2025 10:22 AM EST documented in this encounter [...] at: 01 =G ?[facility] [place] ?? [address] [place] [place] ??[address] ?? Stacey Huang MD, IGP, APTIMA HPV, RFX 16/18,45Note.TBHComment: ?? TESTS ? RESULT ??FLAG ??UNITS ?REF RANGE ??LAB DIAGNOSIS: ?02 ?? NEGATIVE FOR INTRAEPITHELIAL LESION OR MALIGNANCY. Specimen adequacy: ?02 ?? Satisfactory for evaluation. ??No endocervical component is identified. ?? An endocervical component is not commonly seen in the patient. Performed by: ? 02 ?? Lul Soares Hogshead Mat Inspector (ASCP) . ? 02 Note: ? Note [...] pap test was interpreted ?? using the HoloArt.[employer](R) Genius(TM) Cervical Algorithm whole ?? slide imaging system. HPV Genotype Reflex ?? Note ?02 ?? Criteria not met, HPV Genotype not performed. ?FLAG LEGEND: ?L-Low Normal,H-High Normal,LL-Alert Low,HH-Alert High <-Panic Low,>-Panic High,A-Abnormal,AA-Critical Abnormal Performed at: 02 WB ?[facility] [place] ?? [address] [place], [place] ??[phone] ?? Stacey Huang MD, HPV APTIMANegativeNegativeTBHComment: This nucleic acid amplification test detects fourteen high- risk HPV types (16,18,31,33,35,39,45,51,52,56,58,59,66,68) without differentiation. Performed at: ??=G - [facility] [address] ??[id number] Patient Support Partner: Stacey Huang MD, Phone: ??[phone] Performed at: ??WB - [facility] ??[id number] Patient Support Partner: Stacey Huang MD, Phone: ??[phone] Specimen (Source)Anatomical Location / LateralityCollection Method / [...] DateEnd Date Doug Rajput MD [address] [place] [phone] PCP - GeneralFamily Medicine02/04/25documented as of this encounter
--- OUTSIDE RECORDS SUMMARY | 2025-05-10 09:20 | XMS_ITS | Encounter Summary ---
Author Organization [facility] Address [address] [place] [address] Care Team Providers Care Specialized Developer Name Role Phone Doug Rajput MD Primary Care Provider [phone] Encounter Details DateTypeDepartmentCare Team (Latest Contact Info)Suaniluhlef50/23/2025Orders Only [facility] PAYNE [address] [place] [address] Chelsy Horta LPN [address] [employer] [place] [id number] Social History Tobacco UseTypesPacks/DayYears UsedDateSmoking Tobacco: Never Assessed Estimated Date of RjvtxcogSuoeqgldPwg08/23/2026Based on Ultrasound, FHR- 153Sex and Gender InformationValueDate RecordedSex Assigned at BirthNot on fileLegal VisLsazmi17/15/2023 6:53 PM EDTGender IdentityNot on fileSexual OrientationNot on filedocumented as of this encounter Plan of Treatment DateTypeDepartmentCare Team (Latest Contact Info)Dqhnkwwcewp05/29/2025 2:00 PM ESTRoutine [facility] PAYNE [address] [place] [address] Robyn Beauchamp PA [address] [place] [address] documented as of this encounter Procedures Procedure NamePriorityDate/TimeAssociated DiagnosisCommentsPAP TEST, EXTERNAL Kmmmhon0005/02/2025 12:00 AM ESTdocumented in this encounter Results * PAP TEST, EXTERNAL (05/02/2025 12:00 AM EST) Narrative Authorizing ProviderResult TypeResult StatusCorey Stanton DOLAB CYTOLOGY ORDERABLESFinal ResultPerforming OrganizationAddressCity/State/ZIP CodePhone Number EXTERNAL LAB documented in this encounter Visit Diagnoses Not on filedocumented in this encounter Care Teams Team MemberRelationshipSpecialtyStart DateEnd Date Doug Rajput MD [address] [place] [address] PCP - GeneralFamily Medicine02/04/25documented as of this encounter
--- OUTSIDE RECORDS SUMMARY | 2025-05-10 09:20 | XMS_ITS | Patient Health Record ---
Author Organization [facility] [place] Address [address] [place] [address] Care Team Providers Care Postal Supervisor Name Role Phone Dawson Rajput Primary Care Provider [phone] Allergies No Known Allergies Results Component Value Reference Range Notes CBC AUTO DIFF Reviewed date:02/14/2025 02:21:07 PM Interpretation: Performing Lab: Notes/Report: [facility] , White Blood Count 8.7 4.0-11.0 10 3/uL Red Blood Count4.224.20-5.40 10 6/mBKdzqrxhfso02.312.0-16.0 g/fJYydfpavojo88.6 36.0-48.0 %Mean Corpuscular Jbprsf53.181.0-99.0 fLMean Corpuscular Hemoglobin 31.526.7-34.0 pgMean Corpuscular HGB Conc35.429.9-35.2 g/dLRed Cell Distribution Width12.111.0-15.0 %Platelet Rmrcw460281-091 10 3/uLMean Platelet Volume9.29.5- 13.5 fLNeutrophils Percent Auto73.543.0-75.0 %Lymphocytes Percent Auto19.120.5- 60.0 %Monocytes Percent Auto6.61.7-12.0 %Eosinophils Percent Auto0.20.9-7.0 % Basophils Percent Auto0.30.2-2.0 %Immature Granulocytes Pct Auto0.30.0-0.5 % Neutrophils Absolute Auto6.41.4-6.5 10 3/uLLymphocytes Absolute Auto1.71.2-3.8 10 3/uLMonocytes Absolute Auto0.60.3-0.8 10 3/uLEosinophils Absolute Auto0.00.0- 0.7 10 3/uLBasophils Absolute Auto0.00.0-0.1 10 3/uLImmature Granulocytes Abs Auto0.030.00-0.03 10 3/uLPerforming Lab:see note - [facility] LB DRUG SCREEN RAPID (URINE) Reviewed date:02/14/2025 02:21:07 PM Interpretation: Performing Lab: Notes/Report: [facility] ,Cannabinoid Screen UrinePOSITIVENEGATIVEPhencyclidine Screen UrineNEGATIVE NEGATIVECocaine Screen UrineNEGATIVENEGATIVEMethamphetamines Screen Urine NEGATIVENEGATIVEOpiate Screen UrineNEGATIVENEGATIVEAmphetamine Screen Urine NEGATIVENEGATIVEBenzodiazepines Screen UrineNEGATIVENEGATIVETricyclic Antidepressant UrineNEGATIVENEGATIVEMethadone Screen UrineNEGATIVENEGATIVE Barbiturates Screen UrineNEGATIVENEGATIVEOxycodone Screen UrineNEGATIVENEGATIVE Buprenorphine Screen UrineNEGATIVENEGATIVE DRUG CLASS TEST SYSTEM CUT-OFF CONCENTRATIONS ARE FOLLOWS: AMP (Amphetamine): 500 ng/mL BAR (Barbiturates): 200 ng/mL BZO (Benzodiazepines): 150 ng/mL BUP (Buprenorphine): 10 ng/mL BHARATHI (Cocaine): 150 ng/mL mAMP (Methamphetamine): 500 ng/mL MTD (Methadone): 200 ng/mL OPI (Opiates): 100 ng/mL OXY (Oxycodone): 100 ng/mL PCP (Phencyclidine): 25 ng/mL THC (Cannabinoids): 50 ng/mL TCA (Trycyclic Antidepressants): 300 ng/mL Performing Lab:see note - [facility] LBGLYCOHEMOGLOBIN A1C Reviewed date:02/14/2025 02:21:07 PM Interpretation: Performing Lab: Notes/Report: [facility] ,Glycohemoglobin A1C5.14.5-6.2 % ADA RECOMMENDED LIMIT 4.0 - 6.0 ADA THERAPEUTIC TARGET < 7.0 ACTION SUGGESTED > 7.0 Estimated Average Ltahrza157Wofpzdvcyk Lab:see note - [facility] LB RUBELLA AB IGG Reviewed date:02/15/2025 08:08:58 AM Interpretation: Performing Lab: Notes/Report: [facility] ,Rubella Antibodies, IgG5.74Immune >0.99 index Non-immune <0.90 Equivocal 0.90 - 0.99 Immune >0.99 Performed at: [address] [id number] [employer]: Linus Pollard PhD, Phone: [phone] Performing Lab:see [facility] LBType and Screen Reviewed date:02/14/2025 02:21:07 PM Interpretation: Performing Lab: Notes/Report: [facility] ,Blood TypeO PositiveAntibody ScreenNEGATIVEHIV Ab/p24 Ag with Reflex Reviewed date:02/15/2025 08:08:58 AM Interpretation: Performing Lab: Notes/Report: [facility] ,HIV Ab/p24 Ag ScreenNon ReactiveNon Reactive HIV-1/HIV-2 antibodies and HIV-1 p24 antigen were NOT detected. There is no laboratory evidence of HIV infection. HIV Negative Performed at: [address] [id number] [employer]: Linus Pollard PhD, Phone: [phone] Performing Lab:see [facility] LBRapid Plasma Reagin, Quant Reviewed date:02/15/2025 04:57:55 [...] utilized, such as Treponema pallidum (Syphilis) Screening [place] (460808) or Rapid Plasma Reagin (RPR) Test With Reflex to Quantitative RPR and Confirmatory Treponema pallidum Antibodies (449102). Performed at: [address] [id number] [employer]: Linus Pollard PhD, Phone: [phone] Performing Lab:see [facility] LBHCV Antibody RFX to Quant PCR Reviewed date:02/15/2025 08:08:58 AM Interpretation: Performing Lab: Notes/Report: [facility] ,HCV AbNon ReactiveNon ReactiveInterpretation:Comment. Not infected with HCV unless early or acute infection is suspected (which may be delayed in an immunocompromised individual), or other evidence exists to indicate HCV infection. Performed at: [address] [id number] [employer]: Linus Pollard PhD, Phone: [phone] Performing Lab:see [facility]Sac[facility] LBHBsAg Screen Reviewed date:02/15/2025 04:57:55 PM Interpretation: Performing Lab: Notes/Report: [facility] ,HBsAg ScreenNegativeNegative Performed at: [address] [id number] [employer]: Linus Pollard PhD, Phone: [phone] Performing Lab:see [facility] LBUrine Culture, Routine Reviewed date:02/16/2025 05:54:47 PM [...] Urine Culture, Routine Urine Culture, RoutinePerformed at: [facility] Urine Culture, Routine Urine Culture, [address] [place] [id number] Urine Culture, Routine Urine Culture, RoutineLab Director: Linus Pollard PhD, Phone: [phone] Urine Culture, Routine Performing Lab:see note [facility] LB SEE REPORT - Bean Viner Id information not found for OBX-specific multimedia producer legend Cannabinoid Conf, MS, UR Reviewed date:02/17/2025 05:33:23 PM Interpretation: Performing Lab: Notes/Report: [facility] ,CannabinoidPositive.Carboxy THC Conf, MS, VC73Hnaudg=69 ng/mL Performed at: [facility] [address] [id number] [employer]: Leodan Martínez PhD, Phone: [phone] Performing Lab:see noteLC - [facility] LBUnity Box Reviewed date:02/14/2025 02:21:07 PM Interpretation: Performing Lab: Notes/Report: [facility] ,BOX Test Sent OutYESBOX Test Reference LabUNITYBOX Test Date Sent02/14/25 Performing Lab:see noteML - [facility] LBAFP, Serum, Open Spina Bifida Reviewed date:03/27/2025 04:12:50 PM Interpretation: Performing Lab: Notes/Report: N N ULTRASOUND [id number] 2 17 N 1 Y 107 N N N N N White/ [facility] ,ResultsReport.Test Results:*Screen Negative*.Gest. Age on Collection Date20.3. weeksGestat. Age Based OnUltrasound. 17.3 on 03/02/2025 Recalculations are not recommended when gestational dating by LMP and ultrasound are within 10 days. Maternal Age At EDD31.1. yrRaceCaucasian.Ikaxhh831. lbsInsulin Dep DiabetesNo. Multiple GestationNo.AFP Ieyae087.9. ng/mLAFP MoM1.50.OSBR Risk 1 FM7137. InterpretationComment. Interpretation: Screen Negative This result is [...] Customer Services to discuss available options. The [employer] recommends amniocentesis be offered to women age 35 and older. Comment:Comment. Shaniqua Hairston, Ph.D., [facility] Director References: Available Upon Request. Multiples Of Median Cutoffs For AFP Elevations Min 2.5 Black 2.8 IDD 2.0 Twins 4.5 Abbreviation Definitions IDD - Insulin Dep Diabetes OSBR - Open Spina Bifida Risk For further inquiries contact [employer] [facility] at [phone]. This test was developed and its performance characteristics determined by [employer]. It has not been cleared or approved by the Food and Drug Administration. Performed at: - [facility] [place] [address] [facility], [place], [place] [id number] [employer]: [facility] [place] [facility], located [facility], Phone: [phone] Performing Lab:see noteLC - [facility] LBIGP,Aptima HPV,Age Gdln Reviewed date:05/04/2025 04:51:03 PM Interpretation: Performing Lab: Notes/Report: SPATULA-ALONE VAGINA [facility] ,Age Gdln ACOG TestingNote. TESTS RESULT FLAG UNITS REF RANGE LAB Clinician Provided Cytology Information Source.............Vagina Other.............. No. of containers..01 ThinPrep Vial Age Algo ACOG Keena... 30-65 01 FLAG LEGEND: L-Low Normal,H-High Normal,LL-Alert Low,HH-Alert High <-Panic Low,>-Panic High,A-Abnormal,AA-Critical Abnormal Performed at: 01 =G [facility] [address] [facility] [place] [place] [address] Stacey Huang MD, IGP, Aptima HPV, rfx 16/18,45Note. TESTS RESULT FLAG UNITS REF RANGE LAB DIAGNOSIS: 02 NEGATIVE FOR INTRAEPITHELIAL LESION OR MALIGNANCY. Specimen adequacy: 02 Satisfactory for evaluation. No endocervical component is identified. An endocervical component is not commonly seen in the patient. Performed by: Remedios Soares [employer] ([facility]) . 02 Note: Note 02 The [...] ThinPrep(R) pap test was interpreted using the Tab AsiaRSayah(TM) Cervical Algorithm whole slide imaging system. HPV Genotype Reflex Note 02 Criteria not met, HPV Genotype not performed. FLAG LEGEND: L-Low Normal,H-High Normal,LL-Alert Low,HH-Alert High <-Panic Low,>-Panic High,A-Abnormal,AA-Critical Abnormal Performed at: [address] [place] [phone] Stacey Huang MD, HPV AptimaNegativeNegative This nucleic acid amplification test detects fourteen high- risk HPV types (16,18,31,33,35,39,45,51,52,56,58,59,66,68) without differentiation. Performed at: =[address] [id number] [employer]: Stacey Huang MD, Phone: [phone] Performed at: [address] [id number] [employer]: Stacey Huang MD, Phone: [phone] Performing Lab:see noteLC - [facility] LBCBC AUTO DIFF Reviewed date:05/04/2025 04:51:03 PM Interpretation: Performing Lab: Notes/Report: [facility] ,White Blood Count9.44.0-11.0 10 3/uLRed Blood Count3.634.20-5.40 10 6/uL Smugyugtlz67.312.0-16.0 g/yUNtcdqyfcwk88.836.0-48.0 %Mean Corpuscular Kunwih57.1 81.0-99.0 fLMean Corpuscular Vikdgmmfuh69.126.7-34.0 pgMean Corpuscular HGB Conc 33.429.9-35.2 g/dLRed Cell Distribution Width11.811.0-15.0 %Platelet Axdei486 150-450 10 3/uLMean Platelet Volume9.99.5-13.5 fLNeutrophils Percent Auto72.2 43.0-75.0 %Lymphocytes Percent Auto17.420.5-60.0 %Monocytes Percent Auto7.91.7- 12.0 %Eosinophils Percent Auto1.20.9-7.0 %Basophils Percent Auto0.30.2-2.0 % Immature Granulocytes Pct Auto1.00.0-0.5 %Neutrophils Absolute Auto6.81.4-6.5 10 3/uLLymphocytes Absolute Auto1.61.2-3.8 10 3/uLMonocytes Absolute Auto0.70.3-0.8 10 3/uLEosinophils Absolute Auto0.10.0-0.7 10 3/uLBasophils Absolute Auto0.00.0- 0.1 10 3/uLImmature Granulocytes Abs Auto0.090.00-0.03 10 3/uLPerforming Lab:see noteML - [facility] LBGlucose 1 Hour Reviewed date:05/04/2025 04:51:03 PM Interpretation: Performing Lab: Notes/Report: [facility] ,Glucose 1 Ufuk463<130 mg/dLPerforming Lab:see noteML - [facility] LB Reason For Referral No Information [...] alcohol in the p ast year? No Akoioy9SvryaypuhzxpqkZhagnwpe Vital Signs Blood pressure diastolic 58 mm Hg 12/27/2024 Pjiebr55 in12/27/2024lood pressure obxapjoh16 mm Hg12/27/20246365Zvpgmr28.4 lbs 12/27/2024BMI18.24 kg/m212/27/2024 Encounters Encounter Location Date Provider Diagnosis [facility] [address] [place] [address] 12/27/2024 Dawson Rajput Morning sickness O21 .0 Assessments Encounter Date Diagnosis (ICD Code) Assessment Notes Treatment Notes Treatment Clinical Notes Section Notes 12/27/2024 Morning sickness (ICD-10 - O21.0 ) Plan Of Treatment No Information Medical (General) History Medical History History ICD Code Staph infection Left ankle Hospitalization History Reason Date(Month/Year) staph infection as a child
[2025-05-10 11:28] LABS: Glucose 1 Hour 155 mg/dL (<180)
[2025-05-10 12:58] LABS: Glucose 2 Hour 163 mg/dL (<155)
[2025-05-10 13:44] LABS: Glucose 3 Hour 143 mg/dL (<140)
== END 2025-05-10 09:15 | disposition home or self-care (01) ==
LOC: LAB 09:16
PROVIDERS: PCP Family Medicine; Visit Provider Obstetrics & Gynecology
DX: R73.09 Other abnormal glucose (principal)
CPT/HCPCS: 36415; 82951; 82952